=== PATIENT | male | born 1980 | race Caucasian/White ===

== ENCOUNTER 2022-01-17 14:05 | Emergency (ER) | payer OTHER, SELFPAY ==
--- NOTE | ~2022-01-17 | XR_ITS ---
EXAM: XR hand RT min 3V DATE: 01/17/2022 15:06 HISTORY: little finger flexion distal . COMPARISON: 09/13/2012Z. FINDINGS: Normal mineralization. No fracture or dislocation. The right fifth DIP joint is held in fl exion, which is a new finding. No lytic or blastic lesion. Joint spaces are maintained. No erosion or periosteal change. Soft tissues within normal limits. IMPRESSION: Flexed right fifth PIP joint, may reflect extensor tendon injury in the appropriate clini gabriel context. No acute osseous finding in the right hand. Reviewed, dictated and finalized at location K. IMPRESSION: Flexed right fifth PIP joint, may reflect extensor tendon injury in the appropriate clinical context. No acute osseous finding in the right hand.
[2022-01-17 14:26] VITALS: BP 135/91; PULSE 93; RESP 20; TEMP 36.8; O2SAT 97
[2022-01-17] MEDS: ACETAMINOPHEN 325 MG TABLET 650 MG PO (15:04)
--- NOTE | 2022-01-17 15:52 | ED.UPPEXIN ---
HPI - Extremity Injury (Upper) General Chief Complaint: Extremity Injury, Upper Stated Complaint: pinky finger injury right hand Time Seen by Provider: 01/17/22 14:09 Source: patient and RN notes reviewed Mode of arrival: ambulatory Limitations: no limitations History of Present Illness complaint: injury to: right Onset (ago): hour(s) (4) Other Extremity Injury: Right: fingers Other injuries: none Place: work Severity: mild Relieving factors: none Exacerbating factors: movement of extremity Associated symptoms: denies other symptoms Related Data Home Medications Medication Instructions Recorded Confirmed hydrocodone 7.5 mg-ibuprofen 200 1 tablet PO Q6H PRN Pain 01/17/22 01/17/22 mg tablet Allergies Allergy/AdvReac Type Severity Reaction Status Date / Time No Known Allergies Allergy Verified 01/17/22 15:00 Review of Systems Review of Systems: All systems reviewed & are unremarkable except as noted in HPI and below Constitutional: Constitutional: Reports no additional constitutional complaints Eyes: Eyes: Reports no additional eye complaints ENT: Reports system reviewed and no additional complaints, except as documented Cardiovascular: Cardiovascular: Reports no additional cardiovascular complaints Respiratory: Respiratory: Reports no additional respiratory complaints Gastrointestinal: Gastrointestinal: Reports no additional gastrointestinal complaints Musculoskeletal: Musculoskeletal: Reports arthralgias Integumentary/Breasts: Skin/Breast: Reports system reviewed and no additional complaints, except as docu Neurologic: Reports system reviewed and no additional complaints, except as documented Psychiatric: Psychiatric: Reports no additional psychiatric complaints Endocrine: Endocrine: Reports no additional endocrine complaints Hematologic/Lymphatic: Hematologic/Lymphatic: Reports no additional hematologic/lymphatic complaints Allergic/Immunologic: Allergic/Immunologic: Reports no additional allergic/immunologic complaints PMFSH Past Medical History Medical History Flexor tendon bowstring Exam Const: General: healthy appearing and no acute distress Nutritional Appearance: well nourished Orientation/consciousness: patient oriented x3 Limitations: no limitations HENMT: Head: normal to inspection Ears: external ears normal, TM's normal bilaterally and EAC's normal General nose exam: Normal external nose present and Normal nares present Face and sinus: normal facial exam and sinuses nontender Mouth: Yes Normal oral and palatal mucosa present and Yes moist mucous membranes Teeth and gingiva: dentition normal Throat: posterior oropharynx normal Eyes: Conjunctivae: conjunctivae normal Pupils: Equal, round and reactive pupils present EOM: EOMs intact bilaterally Neck: Neck: normal visual inspection, no lymphadenopathy and no meningeal signs Chest: Chest palpation & inspection: normal inspection of the chest Resp: Effort & Inspection: normal respiratory effort Auscultation: clear to auscultation bilaterally Cardio: Rate: regular rate Rhythm: regular rhythm GI: GI Palp: Yes Soft to palpation and No Tenderness to palpation present (GI) Auscultation: normal bowel sounds : General: Yes bladder normal to palpation and Yes no CVA tenderness Back/Spine/Pelvis: Back: no CVA tenderness Skin: General skin exam: normal color Rashes: no rashes Wounds: no wounds Neuro: General: patient oriented x3, moves all extremities, no meningeal signs, no focal motor deficits and CN's II-XI intact bilaterally Cranial nerves: Yes Equal, round and reactive pupils present and Yes Nystagmus not present Speech: normal speech Gait exam (Neuro): Normal gait present Extrem: General: normal to inspection and no pedal edema Other: right 5th finger held in flexion, no acute redness, swelling or deformity. Psych: Mental Status: mental status roxanne
[2022-01-17 16:19] VITALS: BP 135/80; PULSE 76; RESP 20; TEMP 36.8; O2SAT 98
--- NOTE | 2022-01-17 16:20 | PC.NURSE ---
[address] Francis an appt was made for pt to see Dr Williamson hand surgeon on SaturdayJanuary 23 at 1100
== END 2022-01-17 16:20 | disposition home or self-care (01) ==
PROVIDERS: Emergency Provider Emergency Medicine
DX: S66.106A Unspecified injury of flexor muscle, fascia and tendon of right little finger at wrist and hand level, initial encounter (principal)
CPT/HCPCS: 29130; 73130; 99283; A9270

== ENCOUNTER 2022-05-26 12:54 | Emergency (ER) | payer OTHER, SELFPAY ==
--- NOTE | ~2022-05-26 | XR_ITS ---
EXAMINATION: XR chest 2V DATE: 05/26/2022 13:55 INDICATION: Cough TECHNIQUE: PA and lateral views of the chest are obtained. COMPARISON: 06/21/2018 FINDINGS: The lungs are free of acute opacities. No pleural effusion or pneumothorax. The cardiomedia stinal silhouette is normal. There is mild thoracic spondylosis. IMPRESSION: 1. No acute cardiopulmonary abnormality. Reviewed, dictated and finalized at location A.
[2022-05-26 13:10] VITALS: BP 124/82; PULSE 79; RESP 18; TEMP 36.8; O2SAT 98
[2022-05-26 13:19] VITALS: BP 124/82; PULSE 79; RESP 18; TEMP 36.8; O2SAT 98
--- NOTE | 2022-05-26 13:43 | ED.URI ---
HPI - URI/Sore Throat General Chief Complaint: Upper Respiratory Infection Stated Complaint: cold congestion Time Seen by Provider: 05/26/22 13:43 Source: patient Mode of arrival: ambulatory Limitations: no limitations History of Present Illness HPI Narrative: 42-year-old male presents with complaint of cough, chest congestion, shortness of breath with exertion for 1 week. Reports that symptoms are getting progressively worse. Patient is a current everyday smoker. History of bronchitis. Is using albuterol inhaler. States the inhaler is almost empty. Patient is concerned he may have pneumonia. Not taking any [id number] medications to treat symptoms. All systems reviewed and negative except as above. Related Data Home Medications Medication Instructions Recorded Confirmed hydrocodone 7.5 mg-ibuprofen 200 1 tablet PO Q6H PRN Pain 01/17/22 05/26/22 mg tablet tamsulosin 0.4 mg capsule 0.4 mg PO DAILY 05/26/22 05/26/22 Allergies Allergy/AdvReac Type Severity Reaction Status Date / Time No Known Allergies Allergy Verified 05/26/22 13:18 Review of Systems Review of Systems: CONSTITUTIONAL: Denies fever, chills, or sweats. reports fatigue. EYES: Denies visual changes, redness, or discharge. ENT: Denies rhinorrhea, congestion, sore throat, or otalgia. CARDIOVASCULAR: Denies chest pain, palpitations, or edema. RESPIRATORY: Reports cough in chest congestion. Denies dyspnea. GASTROINTESTINAL: Denies abdominal pain, nausea, vomiting, or diarrhea. GENITOURINARY: Denies dysuria or hematuria. SKIN: Denies rash or itching. MUSCULOSKELETAL: Denies back pain, joint pain, or myalgia. NEUROLOGIC: Denies headache, numbness, or weakness. PSYCHIATRIC: Denies anxiety or depression. All other systems reviewed are negative, except as documented in HPI. [facility] Past Medical History Medical History Flexor tendon bowstring Exam Narrative: GENERAL: This is a well-nourished, well-developed patient, in no apparent distress. HEAD: normocephalic, atraumatic. EYES: PERRL. Sclera clear/white. Vision is grossly intact. EARS: External ears normal, auditory canals clear and without drainage, TMs normal without perforation. Hearing grossly intact. NOSE: External nose normal with no obvious nasal discharge, nares without redness, no rhinorrhea. THROAT: Mucous membranes moist, posterior pharynx clear. NECK: Neck supple, non-tender without lymphadenopathy, masses or thyromegaly. CARDIOVASCULAR: Regular rate and rhythm without murmurs, gallops, or rubs. RESPIRATORY: Coarse lung sounds throughout all lung henao. SKIN: warm, Dry, intact with no suspicious lesions or rash, good texture and turgor. NEURO: awake, alert, and oriented to person, place and time. There were no obvious focal neurologic abnormalities. EXTREMITIES: No joint tenderness, effusion, or edema noted. Course Course Level of Care: Express Care Visit Vital Signs Vital signs: Vital Signs Temperature 36.8 C 05/26/22 13:10 Pulse Rate 79 05/26/22 13:10 Respiratory Rate 18 05/26/22 13:10 Blood Pressure 124/82 05/26/22 13:10 Pulse Oximetry 98 05/26/22 13:10 Oxygen Delivery Room Air 05/26/22 13:10 Temperature 36.8 C 05/26/22 13:19 Pulse Rate 79 05/26/22 13:19 Respiratory Rate 18 05/26/22 13:19 Blood Pressure 124/82 05/26/22 13:19 Pulse Oximetry 98 05/26/22 13:19 Oxygen Delivery Room Air 05/26/22 13:19 reviewed MDM - URI/Sore Throat MDM Narrative Medical decision making narrative: coarse lung sounds. recommended breathing treatment the patient did not feel was necessary. She has requested a refill on albuterol inhaler. Discussed chest x-ray results. Negative for pneumonia. Patient is requesting an antibiotic. Will prescribe antibiotic due to duration of symptoms. Patient is aware of diagnosis, understands and agrees to treatment plan. Anticipatory
== END 2022-05-26 14:23 | disposition home or self-care (01) ==
PROVIDERS: Emergency Provider Nurse Practitioner Family; PCP Internal Medicine
DX: J06.9 Acute upper respiratory infection, unspecified (principal); F17.200 Nicotine dependence, unspecified, uncomplicated
CPT/HCPCS: 71046; 99213; G0463

== ENCOUNTER 2022-05-30 14:50 | Emergency (ER) | payer OTHER, SELFPAY ==
--- NOTE | ~2022-05-30 | XR_ITS ---
EXAMINATION: XR chest 1V portable 05/30/2022 15:28 INDICATION: Dyspnea. Shortness of breath. PROCEDURE: AP portable chest COMPARISON: 05/26/2022 FINDINGS: There are calcified granulomas in the right lower lung there is subtle right basilar infilt rate which may represent atelectasis or developing pneumonia. The cardiomediastinal silhouette is wit hin normal limits. There are no pleural effusions. There is no pneumothorax suspected. IMPRESSION: 1: Subtle right basilar infiltrate may represent atelectasis or developing pneumonia. Reviewed, dictated and finalized at location B. IMPRESSION: 1: Subtle right basilar infiltrate may represent atelectasis or developing pne umonia.
[2022-05-30 14:55] VITALS: BP 144/75; PULSE 87; RESP 18; TEMP 36.7; O2SAT 98
[2022-05-30] MEDS: methylPREDNISolone SOD SUCC 125 MG VIAL IV PUSH (15:19)
--- NOTE | 2022-05-30 15:19 | ED.GENADULT ---
HPI - General Adult General Chief complaint: Upper Respiratory Infection Stated complaint: trouble breathing, wheezing. cold symptoms Time Seen by Provider: 05/30/22 15:02 History of Present Illness HPI narrative: Marty is a 42M with a PMH of tobacco abuse and asthma that presented to the ER with over a week of wheezing, coughing and SOB. He was treated at an urgent care on 05/26 with prednisone and and a Z pack. Despite this he is having continued symptoms. There is no CP, fevers, chills, vomiting or lightheadedness. Related Data Home Medications Medication Instructions Recorded Confirmed hydrocodone 7.5 mg-ibuprofen 200 1 tablet PO Q6H PRN Pain 01/17/22 05/30/22 mg tablet tamsulosin 0.4 mg capsule 0.4 mg PO DAILY 05/26/22 05/30/22 Allergies Allergy/AdvReac Type Severity Reaction Status Date / Time No Known Allergies Allergy Verified 05/30/22 14:59 Review of Systems Review of Systems: All systems reviewed & are unremarkable except as noted in HPI and below [facility] Past Medical History Medical History Flexor tendon bowstring Exam Const: General: healthy appearing and no acute distress Nutritional Appearance: well nourished Orientation/consciousness: patient oriented x3 HENMT: Head: normal to inspection Ears: external ears normal Face/Nose/Sinus: Normal external nose present Eyes: Conjunctivae: conjunctivae normal Pupils: Equal, round and reactive pupils present Neck: Neck: normal visual inspection Chest: Chest palpation & inspection: normal inspection of the chest Resp: Effort & Inspection: labored Other: Diffuse wheezing with prolonged expiratory phase and cough was present on exam Cardio: Rate: regular rate Rhythm: regular rhythm Skin: General skin exam: normal color Neuro: General: patient oriented x3 and moves all extremities Extrem: General: normal to inspection Psych: Mental Status: mental status grossly normal Course Course Emergency Course: After the breathing treatment and steroids he was breathing much easier. Given levaquin for possible pneumonia Vital Signs Vital signs: Vital Signs Temperature 98.1 F 05/30/22 14:55 Pulse Rate 87 05/30/22 14:55 Respiratory Rate 18 05/30/22 14:55 Blood Pressure 144/75 H 05/30/22 14:55 Pulse Oximetry 98 05/30/22 14:55 Oxygen Delivery Room Air 05/30/22 14:55 Temperature 98.1 F 05/30/22 14:55 Pulse Rate 80 05/30/22 15:59 Respiratory Rate 18 05/30/22 15:59 Blood Pressure 120/64 05/30/22 15:59 Pulse Oximetry 96 05/30/22 15:59 Oxygen Delivery Room Air 05/30/22 15:59 Oxygen Flow Rate 6 05/30/22 15:41 Medical Decision Making Vital Signs Vital Signs: Vital Signs Temperature 98.1 F 05/30/22 14:55 Pulse Rate 87 05/30/22 14:55 Respiratory Rate 18 05/30/22 14:55 Blood Pressure 144/75 H 05/30/22 14:55 Pulse Oximetry 98 05/30/22 14:55 Oxygen Delivery Room Air 05/30/22 14:55 Temperature 98.1 F 05/30/22 14:55 Pulse Rate 80 05/30/22 15:59 Respiratory Rate 18 05/30/22 15:59 Blood Pressure 120/64 05/30/22 15:59 Pulse Oximetry 96 05/30/22 15:59 Oxygen Delivery Room Air 05/30/22 15:59 Oxygen Flow Rate 6 05/30/22 15:41 Lab Data Result diagrams: 05/30/22 15:21 05/30/22 15:21 Labs: Lab Results 05/30/22 05/30/22 Range/Units 15:21 15:21 WBC 9.5 (4.8-10.8) K/mm3 RBC 4.59 L (4.70-6.10) M/mm3 Hgb 14.1 (14.0-18.0) g/dL Hct 42.2 (40.0-54.0) % MCV 91.9 (78.0-102.0) fL MCH 30.7 (27.0-31.0) pg MCHC 33.4 (32.0-36.0) g/dL RDW 12.8 (11.6-14.4) % Plt Count 253 (150-420) K/mm3 MPV 10.2 (8.7-11.0) fl Immature Gran % (Auto) 0.3 H (0.0-0.0) % Neut % (Auto) 66.9 (50.0-70.0) % Lymph % (Auto) 26.3 (18.0-42.0) % [place] % (Auto) 5.7 (2.0-11.0) % Eos % (Auto) 0.5 L (1.0-6.0) % Baso % (Auto) 0.3 (0.0-1.0) % L
[2022-05-30 15:24] VITALS: PULSE 73; RESP 18; O2SAT 97
[2022-05-30] MEDS: IPRATROPIUM 0.5 MG/ALBUTEROL SULFATE 2.5 MG AMPUL.NEB 3 ML INHALATION (15:24)
[2022-05-30 15:25] LABS: Basophils Absolute Auto 0.03 K/mm3 (0.00-0.10); Basophils Percent Auto 0.3 % (0.0-1.0); Eosinophils Absolute Auto 0.05 K/mm3 (0.02-0.50); Eosinophils Percent Auto 0.5 % (1.0-6.0); Hematocrit 42.2 % (40.0-54.0); Hemoglobin 14.1 g/dL (14.0-18.0); Immature Granulocyte Absolute 0.03 K/mm3 (0.00-0.00); Immature Granulocyte Percent A 0.3 % (0.0-0.0); Lymphocytes Absolute Auto 2.51 K/mm3 (1.10-4.50); Lymphocytes Percent Auto 26.3 % (18.0-42.0); Mean Corpuscular HGB Conc 33.4 g/dL (32.0-36.0); Mean Corpuscular Hemoglobin 30.7 pg (27.0-31.0); Mean Corpuscular Volume 91.9 fL (78.0-102.0); Mean Platelet Volume 10.2 fl (8.7-11.0); Monocytes Absolute Auto 0.54 K/mm3 (0.10-0.90); Monocytes Percent Auto 5.7 % (2.0-11.0); Neutrophils Absolute Auto 6.4 K/mm3 (1.7-7.2); Neutrophils Percent Auto 66.9 % (50.0-70.0); Platelet Count Result 253 K/mm3 (150-420); Red Blood Count 4.59 M/mm3 (4.70-6.10); Red Cell Distribution Width 12.8 % (11.6-14.4); White Blood Count 9.5 K/mm3 (4.8-10.8)
[2022-05-30 15:40] LABS: Alanine Aminotransferase 24 U/L (16-63); Albumin Level 3.3 g/dL (3.4-5.0); Alkaline Phosphatase 86 U/L (46-116); Anion Gap 5 mmol/L (8-16); Aspartate Amino Transferase 11 U/L (15-37); Bilirubin,Total 0.3 mg/dL (0.00-1.00); Blood Urea Nitrogen 14 mg/dL (7-18); Calcium 8.6 mg/dL (8.5-10.1); Carbon Dioxide 30 mmol/L (21-32); Chloride 108 mmol/L (98-108); Estimated CRCL calculation 82 ml/min; Estimated Glomerular Filt Rate > 60; Glucose 118 mg/dL (70-99); Osmolality Calculated 297 mOsm/kg (285-295); Sodium 143 mmol/L (136-145); Total Protein 5.8 g/dL (6.4-8.2)
[2022-05-30 15:41] VITALS: PULSE 79; RESP 18; O2SAT 99
[2022-05-30] MEDS: POTASSIUM CHLORIDE 20 MEQ TABLET 40 MEQ PO (15:55)
[2022-05-30] MEDS: levoFLOXacin TAB 500 MG, levoFLOXacin TAB 250 MG 750 MG PO (15:56)
[2022-05-30 15:59] VITALS: BP 120/64; PULSE 80; RESP 18; O2SAT 96
--- NOTE | 2022-05-30 15:59 | PC.NURSE ---
PT REPORTS HE IS FEELING A LITTLE BETTER POST NEB TX. PT IS SITTING UP TALKING WITH SIG OTHER AT THIS TIME. NAD NOTED. SX HAVE IMPROVED. WILL AWAIT ERP DECISION.
[2022-05-30 16:25] VITALS: BP 132/78; PULSE 78; RESP 18; O2SAT 97
== END 2022-05-30 16:20 | disposition home or self-care (01) ==
PROVIDERS: Emergency Provider Family Medicine
DX: J18.9 Pneumonia, unspecified organism (principal); J45.901 Unspecified asthma with (acute) exacerbation
CPT/HCPCS: 36415; 71045; 80053; 85025; 94640; 96374; 99284; A9270; J2930

== ENCOUNTER 2022-10-13 19:25 | Emergency (ER) | payer OTHER, SELFPAY ==
--- NOTE | ~2022-10-13 | CT_ITS ---
Non-contrast CT scan of the Abdomen and Pelvis Clinical indication: Right flank pain Technique: 2.5 mm axial scans were obtained through the abdomen and pelvis without intravenous or or al contrast. Dose reduction technique was used on this scan by utilizing automated exposure control a nd iterative reconstruction technique. The dose-length product (DLP) was 186.29 mGy-cm. Findings: Images through the lung bases reveal calcified right lower lobe granuloma. Small bilateral nonobstructing renal stones are present. No ureteral stone or hydronephrosis seen in either side. The liver, spleen, pancreas, gallbladder, and right adrenal gland appear normal. Low-density left adr enal nodules consistent with benign adenoma. There is no aortic aneurysm. There is no evidence of bowel obstruction. Small fat-containing umbilical hernia noted. Images through the pelvis were performed. There is no evidence of ascites or lymphadenopathy. Urinary bladder unremarkable. Prostate gland and seminal vesicles are unremarkable. Impression: Bilateral nonobstructing nephrolithiasis. No ureteral stone or hydronephrosis. Left adrenal adenoma. Small fat-containing umbilical hernia. Reviewed, dictated and finalized at [facility]. [employer] Impression: Bilateral nonobstructing nephrolithiasis. No ureteral stone or hydronephrosis. Left adrenal adenoma. Small fat-containing umbilical hernia.
[2022-10-13 19:25] VITALS: BP 153/82; PULSE 90; RESP 16; TEMP 37.1; O2SAT 97
--- NOTE | 2022-10-13 19:30 | ECG_ITS ---
Measurements Intervals [place] Rate: 80 P: 73 DE: 152 QRS: 75 QRSD: 92 T: 75 QT: 370 QTc: 429 Interpretive Statements SINUS RHYTHM NORMAL ECG NO PREVIOUS ECG AVAILABLE FOR COMPARISON Electronically Signed On 10-14-2022 8:00:27 CDT by Leonid Zavala D.O.
[2022-10-13] MEDS: KETOROLAC 30 MG/ML VIAL (*BKC) IV PUSH (20:00)
--- NOTE | 2022-10-13 20:02 | ED.BACK ---
HPI - Back Pain/Injury General Chief Complaint: Urogenital-Male Stated Complaint: Lower Back Pain Time Seen by Provider: 10/13/22 19:29 Source: patient Mode of arrival: ambulatory Limitations: no limitations History of Present Illness HPI Narrative: This is a 42-year-old male that presents with some flank pain and back pain has a history of back pain neck pain and a history of kidney stones in the past rates his pain about a 7/10 with no nausea currently no abdominal pain no dysuria no hematuria no chest pain or shortness of breath. MD elicited complaint: back pain Pertinent past history: prior back pain and other Onset (ago): day(s) Timing: intermittent Severity: moderate Pain scale (0-10): 7 Quality: dull Related Data Home Medications Medication Instructions Recorded Confirmed hydrocodone 7.5 mg-ibuprofen 200 1 tablet PO Q6H PRN Pain 01/17/22 10/13/22 mg tablet tamsulosin 0.4 mg capsule 0.4 mg PO DAILY 05/26/22 10/13/22 Allergies Allergy/AdvReac Type Severity Reaction Status Date / Time No Known Allergies Allergy Verified 10/13/22 19:34 Review of Systems Review of Systems: All systems reviewed & are unremarkable except as noted in HPI and below PMFSH Past Medical History Medical History Flexor tendon bowstring Exam Const: General: healthy appearing Nutritional Appearance: well nourished Orientation/consciousness: patient oriented x3 Limitations: no limitations HENMT: Head: normal to inspection Face/Nose/Sinus: Normal external nose present Face and sinus: normal facial exam Mouth: Yes Normal oral and palatal mucosa present Eyes: Conjunctivae: conjunctivae normal Pupils: Equal, round and reactive pupils present EOM: EOMs intact bilaterally Direct Ophthalmoscopy: no photophobia Neck: Neck: normal visual inspection Chest: Chest palpation & inspection: normal inspection of the chest Resp: Effort & Inspection: normal respiratory effort Auscultation: diminished lung sounds Cardio: Rate: regular rate Rhythm: regular rhythm GI: GI Palp: Yes Soft to palpation and Yes Tenderness to palpation present (GI) Auscultation: normal bowel sounds : General: Yes bladder normal to palpation Urinary Catheter: Urinary Catheter: patent and draining Back/Spine/Pelvis: Back: CVA tenderness Skin: General skin exam: normal color Rashes: no rashes Wounds: no wounds Neuro: General: patient oriented x3 and moves all extremities Cranial nerves: Yes Nystagmus not present Speech: normal speech Gait exam (Neuro): Normal gait present Extrem: General: normal to inspection Psych: Mental Status: mental status grossly normal Affect: normal affect Attitude: cooperative Course Course Emergency Course: Patient receiving IV fluids received a dose of IV Toradol 30mg, CT scan reviewed shows kidney stones without obstruction, with no urethral stones. Labs performed and reviewed with patient. Vital Signs Vital signs: Vital Signs Temperature 37.1 C 10/13/22 19:25 Pulse Rate 90 10/13/22 19:25 Respiratory Rate 16 10/13/22 19:25 Blood Pressure 153/82 H 10/13/22 19:25 Pulse Oximetry 97 10/13/22 19:25 Oxygen Delivery Room Air 10/13/22 19:25 Temperature 37.1 C 10/13/22 19:25 Pulse Rate 90 10/13/22 19:25 Respiratory Rate 16 10/13/22 19:25 Blood Pressure 153/82 H 10/13/22 19:25 Pulse Oximetry 97 10/13/22 19:25 Oxygen Delivery Room Air 10/13/22 19:25 MDM - Back Pain/Injury Lab Data 10/13/22 20:00 10/13/22 20:01 Labs: Lab Results 10/13/22 10/13/22 10/13/22 Range/Units 20:00 20:00 20:00 WBC Pending RBC Pending Hgb Pending Hct Pending MCV Pending MCH Pending MCHC Pending RDW Pending Plt Count Pending MPV Pending Immature Gran % (Auto) Pending Neut % (Auto) Pending Lymph % (Auto) Pending Bond % (Auto) P
[2022-10-13 20:04] LABS: Basophils Absolute Auto 0.06 K/mm3 (0.00-0.10); Basophils Percent Auto 0.8 % (0.0-1.0); Eosinophils Absolute Auto 0.21 K/mm3 (0.02-0.50); Eosinophils Percent Auto 2.9 % (1.0-6.0); Hematocrit 43.6 % (40.0-54.0); Hemoglobin 14.3 g/dL (14.0-18.0); Immature Granulocyte Absolute 0.02 K/mm3 (0.00-0.00); Immature Granulocyte Percent A 0.3 % (0.0-0.0); Lymphocytes Absolute Auto 2.09 K/mm3 (1.10-4.50); Lymphocytes Percent Auto 28.8 % (18.0-42.0); Mean Corpuscular HGB Conc 32.8 g/dL (32.0-36.0); Mean Corpuscular Hemoglobin 30.1 pg (27.0-31.0); Mean Corpuscular Volume 91.8 fL (78.0-102.0); Mean Platelet Volume 10.4 fl (8.7-11.0); Monocytes Percent Auto 6.9 % (2.0-11.0); Neutrophils Absolute Auto 4.4 K/mm3 (1.7-7.2); Neutrophils Percent Auto 60.3 % (50.0-70.0); Platelet Count Result 249 K/mm3 (150-420); Red Blood Count 4.75 M/mm3 (4.70-6.10); Red Cell Distribution Width 13.2 % (11.6-14.4); White Blood Count 7.3 K/mm3 (4.8-10.8)
[2022-10-13 20:07] LABS: Appearance Urine Clear (Clear); Bilirubin Urine Negative (Negative); Blood Urine 1+ (Negative); Color Urine Light Yellow (Yellow); Glucose Urine UA Negative (Negative); Ketones Urine Negative (Negative); Leukocyte Esterase Ur Negative LEU/UL (Negative); Nitrate Urine Negative (Negative); Protein Urine Negative (Negative); Specific Grav Ur 1.025 (1.010-1.020); Urobilinogen Urine 0.2 mg/dL (0.2-1.0); pH Urine 6.5 (5.0-8.0)
[2022-10-13 20:13] LABS: Add Urine Microscopic? YES
[2022-10-13 20:14] LABS: RBC Urine 0-2 /hpf (0-2)
[2022-10-13 20:19] LABS: Partial Thromboplastin Time 27.9 SEC (23.90-30.70); Prothrombin Time 11.4 Seconds (9.50-12.10)
[2022-10-13 20:24] LABS: Lactic Acid Reflex 0.8 mmol/L (0.4-2.0)
[2022-10-13 20:33] LABS: Alanine Aminotransferase 24 U/L (16-63); Albumin Level 3.9 g/dL (3.4-5.0); Alkaline Phosphatase 94 U/L (46-116); Anion Gap 7 mmol/L (8-16); Aspartate Amino Transferase 15 U/L (15-37); Bilirubin,Total 0.2 mg/dL (0.00-1.00); Blood Urea Nitrogen 19 mg/dL (7-18); Calcium 6.3 mg/dL (8.5-10.1); Carbon Dioxide 31 mmol/L (21-32); Chloride 105 mmol/L (98-108); Estimated CRCL calculation 63 ml/min; Estimated Glomerular Filt Rate 57; Glucose 95 mg/dL (70-99); Lipase 51 U/L (16-77); Osmolality Calculated 298 mOsm/kg (285-295); Potassium 4.1 mmol/L (3.5-5.1); Sodium 143 mmol/L (136-145); Total Protein 6.6 g/dL (6.4-8.2)
[2022-10-13 20:56] VITALS: BP 156/75; PULSE 70; RESP 16; TEMP 37; O2SAT 100
== END 2022-10-13 21:02 | disposition home or self-care (01) ==
PROVIDERS: Emergency Provider Emergency Medicine; PCP Internal Medicine
DX: M54.50 Low back pain, unspecified (principal); Z79.891 Long term (current) use of opiate analgesic
CPT/HCPCS: 36415; 74176; 80053; 81001; 83605; 83690; 85025; 85610; 85730; 93005; 96374; 99284; J1885

== ENCOUNTER 2022-10-20 15:05 | Emergency (ER) | payer OTHER, SELFPAY ==
[2022-10-20 15:12] VITALS: BP 161/86; PULSE 99; RESP 18; TEMP 36.7; O2SAT 97
[2022-10-20 15:19] VITALS: BP 161/86; PULSE 88; RESP 16; TEMP 36.7; O2SAT 98
--- NOTE | 2022-10-20 15:45 | ED.DENTAL ---
HPI - Dental/Oral General Chief complaint: Dental/Oral Stated complaint: toothache upper left Time Seen by Provider: 10/20/22 15:10 Source: patient Mode of arrival: ambulatory Limitations: no limitations History of Present Illness HPI Narrative: this is a 42-year-old gentleman with a history of chronic tooth decay has been having some pain inflammation with tender submandibular gland on the left will call his dentist and he does have an appointment to see his dentist this coming Saturday but would require antibiotics if he has a abscessed tooth. There is no shortness of breath no fever chills no nausea vomiting. MD Complaint: tooth pain Teeth map: 1. dental decay with surrounding gum inflammation with a tender submandibular gland on the left tender upper jaw area with palpation Onset (ago): day(s) Duration: constant Severity: moderate Severity scale (1-10): 5 Relieving factors: prescription analgesics Exacerbating factors: chewing and cold Context: history of dental caries Associated symptoms: gum swelling Related Data Home Medications Medication Instructions Recorded Confirmed hydrocodone 7.5 mg-ibuprofen 200 1 tablet PO Q6H PRN Pain 01/17/22 10/20/22 mg tablet tamsulosin 0.4 mg capsule 0.4 mg PO DAILY 05/26/22 10/20/22 Allergies Allergy/AdvReac Type Severity Reaction Status Date / Time No Known Allergies Allergy Verified 10/20/22 15:26 Review of Systems Review of Systems: All systems reviewed & are unremarkable except as noted in HPI and below PMFSH Past Medical History Medical History Flexor tendon bowstring Exam Const: General: healthy appearing Nutritional Appearance: well nourished Orientation/consciousness: patient oriented x3 Limitations: no limitations HENMT: Head: normal to inspection Face/Nose/Sinus: Normal external nose present Face and sinus: normal facial exam Mouth: Yes Normal oral and palatal mucosa present Other: Left upper molar premolar tooth decay with surrounding gum inflammation with a tender left submandibular gland. Eyes: Conjunctivae: conjunctivae normal EOM: EOMs intact bilaterally Neck: Neck: normal visual inspection Chest: Chest palpation & inspection: normal inspection of the chest Resp: Effort & Inspection: normal respiratory effort Auscultation: clear to auscultation bilaterally Cardio: Rate: regular rate Rhythm: regular rhythm GI: Auscultation: normal bowel sounds Skin: General skin exam: normal color Rashes: no rashes Wounds: no wounds Neuro: General: patient oriented x3 Cranial nerves: Yes Nystagmus not present Extrem: General: normal to inspection Psych: Mental Status: mental status grossly normal Affect: normal affect Course Course Emergency Course: Patient does have pain medication and does have an appointment to see his dentist, will send antibiotics to his local pharmacy. Vital Signs Vital signs: Vital Signs Temperature 36.7 C 10/20/22 15:12 Pulse Rate 99 10/20/22 15:12 Respiratory Rate 18 10/20/22 15:12 Blood Pressure 161/86 H 10/20/22 15:12 Pulse Oximetry 97 10/20/22 15:12 Oxygen Delivery Room Air 10/20/22 15:12 Temperature 36.7 C 10/20/22 15:19 Pulse Rate 88 10/20/22 15:19 Respiratory Rate 16 10/20/22 15:19 Blood Pressure 161/86 H 10/20/22 15:19 Pulse Oximetry 98 10/20/22 15:19 Oxygen Delivery Room Air 10/20/22 15:19 Critical Care Time Critical Care Time Critical Care Time: No Discharge Plan Discharge Clinical Impression: Toothache, Dental caries, Dental abscess Patient Disposition: Home, Self-Care Condition: Stable Instructions: Antibiotic Form, Dental Abscess (ED) Additional Instructions: Take medicine as prescribed, can take Tylenol or Motrin which will help with inflammation along with antibiotics and follow-up with dentist as scheduled. Prescriptions: New amoxicillin 500 mg tablet 50
[2022-10-20 15:52] VITALS: BP 161/86; PULSE 88; RESP 17; TEMP 36.7; O2SAT 98
== END 2022-10-20 15:55 | disposition home or self-care (01) ==
PROVIDERS: Emergency Provider Emergency Medicine; PCP Internal Medicine
DX: K02.9 Dental caries, unspecified (principal); K04.7 Periapical abscess without sinus
CPT/HCPCS: 99283

== ENCOUNTER 2022-12-04 09:00 | Emergency (ER) | payer OTHER, SELFPAY ==
--- NOTE | ~2022-12-04 | XR_ITS ---
EXAMINATION: XR chest 2V DATE: 12/04/2022 10:26 INDICATION: Cough and right-sided chest pain/burning sensation TECHNIQUE: PA and lateral views of the chest were obtained. COMPARISON: Chest radiograph dated 05/30/2022 and 05/26/2022 FINDINGS: Again seen is a small calcified nodule at the right lower lung zone consistent with old granulomatous disease. Mild biapical pleural-parenchymal scarring. No other airspace opacities, pulmonary edema, p leural effusion or pneumothorax. The cardiomediastinal silhouette is normal. Mild thoracic spondylosi s with chronic mild anterior wedging of an upper thoracic vertebral body, likely T5. IMPRESSION: 1. No acute cardiopulmonary disease. Reviewed, dictated and finalized at location L.
[2022-12-04 09:00] VITALS: TEMP 37.2
[2022-12-04 09:03] VITALS: BP 123/75; PULSE 87; RESP 18; TEMP 37.2; O2SAT 98
--- NOTE | 2022-12-04 09:31 | ED.URI ---
HPI - URI/Sore Throat General Chief Complaint: Upper Respiratory Infection Stated Complaint: SOB Time Seen by Provider: 12/04/22 09:31 Source: patient and RN notes reviewed Mode of arrival: ambulatory Limitations: no limitations History of Present Illness MD elicited complaint: cough, sore throat and rhinorrhea Onset (ago): day(s) (1) Consistency: constant Severity: moderate Description of mucous: clear Able to tolerate fluids by mouth: Yes Exacerbating factors: nothing Relieving factors: nothing Context: other(s) with similar symptoms Associated symptoms: denies other symptoms Treatments prior to arrival: none Related Data Home Medications Medication Instructions Recorded Confirmed hydrocodone 7.5 mg-ibuprofen 200 1 tablet PO Q6H PRN Pain 01/17/22 12/04/22 mg tablet tizanidine 2 mg tablet 2 mg PO TID PRN Muscle Spasm 12/04/22 12/04/22 Allergies Allergy/AdvReac Type Severity Reaction Status Date / Time No Known Allergies Allergy Verified 12/04/22 09:02 Review of Systems Review of Systems: All systems reviewed & are unremarkable except as noted in HPI and below Constitutional: Constitutional: Denies chills and Denies fever(s) Cardiovascular: Cardiovascular: Reports chest pain (burning on the right) Gastrointestinal: Gastrointestinal: Denies diarrhea, Denies nausea and Denies vomiting Musculoskeletal: Musculoskeletal: Denies myalgias Neurologic: Denies headache(s) [facility] Past Medical History Medical History (Updated 12/04/22 @ 10:46 by Nguyễn Caruso MD) Flexor tendon bowstring Surgical History Surgical History (Updated 12/04/22 @ 09:43 by Nguyễn Caruso MD) Carpal tunnel syndrome History of appendectomy Social History Social History (Updated 12/04/22 @ 09:44 by Nguyễn Caruso MD) Smoking packs per day: 1 Smoking cigarettes per day: 20.0 Smoking status: Current every day smoker Tobacco type: cigarettes Exam Const: General: no acute distress, alert and ill appearing acutely Nutritional Appearance: well nourished Orientation/consciousness: patient oriented x3 Limitations: no limitations HENMT: Head: normal to inspection Ears: external ears normal Face/Nose/Sinus: Normal external nose present Face and sinus: normal facial exam Mouth: Yes moist mucous membranes Eyes: Conjunctivae: conjunctivae normal Pupils: Equal, round and reactive pupils present EOM: EOMs intact bilaterally Neck: Neck: normal visual inspection Resp: Effort & Inspection: normal respiratory effort Auscultation: rhonchi right lower and wheezes right lower and right upper Cardio: Rate: regular rate Rhythm: regular rhythm GI: GI Palp: Yes Soft to palpation and No Tenderness to palpation present (GI) Auscultation: normal bowel sounds Back/Spine/Pelvis: Cervical Spine: cervical ROM normal Thoracic/Lumbar Spine: thoraco-lumbar ROM normal Skin: General skin exam: normal color Rashes: no rashes Neuro: General: patient oriented x3, moves all extremities, no focal motor deficits and CN's II-XI intact bilaterally Speech: normal speech Gait exam (Neuro): Normal gait present Course Vital Signs Vital signs: Vital Signs Temperature 37.2 C 12/04/22 09:00 Oxygen Delivery Room Air 12/04/22 09:00 Temperature 37.2 C 12/04/22 09:03 Pulse Rate 87 12/04/22 09:03 Respiratory Rate 18 12/04/22 09:03 Blood Pressure 123/75 12/04/22 09:03 Pulse Oximetry 98 12/04/22 09:03 Oxygen Delivery Room Air 12/04/22 09:00 MDM - URI/Sore Throat Differential Diagnosis Differential diagnosis: Likely upper respiratory infection, viral infection, bronchitis, influenza, pharyngitis and other ( COVID, pneumonia) Lab Data Labs: Lab Results 12/04/22 12/04/22 Range/Units 09:22 09:23 Influenza A (RT-PCR) Pending Influenza B (RT-PCR) Pending SARS-CoV-2 RNA (RT-PCR) Pending Group A Strep (PCR) Pending Discharge Plan Discharge Clinical Impression: Bronch
[2022-12-04 09:42] LABS: Strep Group A RT-PCR NOT DETECTED (Negative)
[2022-12-04 09:52] LABS: Influenza A QL RT-PCR Negative (Negative); Influenza B QL RT-PCR Negative (Negative); SARS-CoV-2 RNA PCR Negative (Negative)
[2022-12-04] MEDS: IPRATROPIUM 0.5 MG/ALBUTEROL SULFATE 2.5 MG AMPUL.NEB 3 ML INHALATION (10:07)
[2022-12-04 10:08] VITALS: PULSE 80; RESP 16; O2SAT 94
[2022-12-04 10:13] VITALS: PULSE 80; RESP 16; O2SAT 98
--- NOTE | 2022-12-04 10:14 | PC.NURSE ---
PT IS AWAITING CXR AT THIS TIME. AT BEDSIDE. PT HAS COMPLETED NEB TX. NAD NOTED. WILL CONTINUE TO MONITOR. WARM BLANKET PROVIDED. WILL CONTINUE TO MONITOR.
[2022-12-04 10:51] VITALS: BP 144/79; PULSE 83; RESP 18; O2SAT 94
--- NOTE | 2022-12-04 10:51 | PC.NURSE ---
PT IS SLEEPING PRIOR TO DC .
== END 2022-12-04 10:55 | disposition home or self-care (01) ==
PROVIDERS: Emergency Provider Emergency Medicine; PCP Internal Medicine
DX: J00 Acute nasopharyngitis [common cold] (principal); F17.210 Nicotine dependence, cigarettes, uncomplicated; Z20.822 Contact with and (suspected) exposure to COVID-19
CPT/HCPCS: 71046; 87636; 87651; 94640; 99283

== ENCOUNTER 2023-01-05 15:59 | Emergency (ER) | payer OTHER, SELFPAY ==
[2023-01-05 16:09] VITALS: BP 123/80; PULSE 84; RESP 16; TEMP 36.9; O2SAT 98
--- NOTE | 2023-01-05 16:24 | ED.DENTAL ---
HPI - Dental/Oral General Chief complaint: Dental/Oral Stated complaint: Tooth pain Source: patient Mode of arrival: ambulatory History of Present Illness HPI Narrative: 42-year-old male presented for complaint of left upper dental pain for 2 days. I made appointment with his dentist for 2 weeks. States the tooth has been broken for quite some time. Endorses mild swelling to the inner gumline. Denies drainage. 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 Rinsed mouth with salt water. Denies nausea, vomiting diarrhea, fevers or chills. MD Complaint: tooth pain Related Data Home Medications Medication Instructions Recorded Confirmed hydrocodone 7.5 mg-ibuprofen 200 1 tablet PO Q6H PRN Pain 01/17/22 12/04/22 mg tablet Allergies Allergy/AdvReac Type Severity Reaction Status Date / Time No Known Allergies Allergy Verified 12/04/22 09:02 Review of Systems Review of Systems: CONSTITUTIONAL: Denies body aches, fever, chills ENT: Denies rhinorrhea, congestion, sore throat, or otalgia. Reports dental pain CARDIOVASCULAR: Denies chest pain, palpitations RESPIRATORY: Denies cough or dyspnea. SKIN: Denies rash, itching, or wounds. MUSCULOSKELETAL: Denies myalgia. NEUROLOGIC: Denies headache, numbness, tingling, or weakness. [facility] Past Medical History Medical History Flexor tendon bowstring Surgical History Surgical History Carpal tunnel syndrome History of appendectomy Social History Social History Smoking packs per day: 1 Smoking cigarettes per day: 20.0 Smoking status: Current every day smoker Tobacco type: cigarettes Comments At time of signature, I have reviewed and agree with nursing past medical, surgical, social and family history unless otherwise noted. Please see nursing chart for further information. There is no relevant family history pertinent to the presenting complaint Exam Narrative: GENERAL: Appears in pain; no acute distress. HEAD: Normocephalic, atraumatic. no apparent facial swelling or erythema EYES: EOMI. No redness or drainage. Conjunctivae normal. ENT: Dental pain location of #15, broken tooth; gum is tender. no drainage. Mucous membranes pink and moist. NECK: Normal AROM. No lymphadenopathy. CHEST: No respiratory distress. HEART: Regular rate and rhythm. No murmur appreciated. SKIN: Warm, dry, no rash. Normal skin turgor. NEURO: No focal deficits. Alert and oriented x3. Gait steady. HENMT: Teeth image: 1. Tooth #15 broken/decaying with mild medial gum swelling Course Course Emergency Course: Patient is aware of diagnosis, understands and agrees to treatment plan. Anticipatory guidance given. Patient agrees to follow-up as directed and is aware of reasons to seek care at the emergency department. Portions of this record may have been created with voice recognition software Level of Care: Express Care Visit Vital Signs Vital signs: Vital Signs Temperature 98.4 F 01/05/23 16:09 Pulse Rate 84 01/05/23 16:09 Respiratory Rate 16 01/05/23 16:09 Blood Pressure 123/80 01/05/23 16:09 Pulse Oximetry 98 01/05/23 16:09 Oxygen Delivery Room Air 01/05/23 16:09 Temperature 98.4 F 01/05/23 16:09 Pulse Rate 84 01/05/23 16:09 Respiratory Rate 16 01/05/23 16:09 Blood Pressure 123/80 01/05/23 16:09 Pulse Oximetry 98 01/05/23 16:09 Oxygen Delivery Room Air 01/05/23 16:09 MDM - Dental/Oral MDM Narrative Medical decision making narrative: Patients pain and complaint coupled with physical findings are consistent with dental abscess. There are no focal signs of space occupying lesions that are compromising to the airway. No uvular deviation or soft palate edema. Patient is non-toxic
== END 2023-01-05 16:32 | disposition home or self-care (01) ==
PROVIDERS: Emergency Provider Nurse Practitioner Family
DX: K04.7 Periapical abscess without sinus (principal); F17.210 Nicotine dependence, cigarettes, uncomplicated
CPT/HCPCS: 99213; G0463

== ENCOUNTER 2023-01-21 23:24 | Emergency (ER) | payer OTHER, SELFPAY ==
[2023-01-21 23:26] VITALS: BP 150/85; PULSE 76; RESP 18; TEMP 36.9; O2SAT 99
--- NOTE | 2023-01-22 00:32 | ED.SKABFB ---
HPI - Skin/Abscess/Foreign Bdy General Chief complaint: Skin/Abscess/Foreign Body Stated complaint: Rash/Groin area Source: patient Mode of arrival: ambulatory Limitations: no limitations History of Present Illness HPI narrative: 42-year-old white male presents with about a half in size round raised lesion to his left lower abdomen just above they L mid inguinal area. this has come up over the last 5 or 6 days, and he reports this has happened 3-4 times over the last 6 months. 1 time he was started on antibiotics and it resolved, the other time it went away on its own for he denies any fever or chills, abdominal pain, nausea vomiting, denies any penile discharge, dysuria urgency or frequency. There has never been a 2nd lesion, and he has not had any sores on his penis. Related Data Home Medications Medication Instructions Recorded Confirmed hydrocodone 7.5 mg-ibuprofen 200 1 tablet PO Q6H PRN Pain 01/17/22 01/21/23 mg tablet Allergies Allergy/AdvReac Type Severity Reaction Status Date / Time No Known Allergies Allergy Verified 12/04/22 09:02 Review of Systems Review of Systems: All systems reviewed & are unremarkable except as noted in HPI and below ( HPI) [facility] Past Medical History Medical History Flexor tendon bowstring Surgical History Surgical History Carpal tunnel syndrome History of appendectomy Social History Social History Smoking packs per day: 1 Smoking cigarettes per day: 20.0 Smoking status: Current every day smoker Tobacco type: cigarettes Exam Narrative: pleasant, well-appearing child, appropriately interactive, no acute distress Const: General: cooperative, healthy appearing, comfortable, no acute distress, well developed, alert, awake and Physically active Orientation/consciousness: patient oriented x3 HENMT: Head: normal to inspection, normocephalic and atraumatic Ears: hearing grossly normal bilaterally and external ears normal Face/Nose/Sinus: Normal external nose present, Normal nares present, Normal nasal mucous membranes and turbinates present and normal facial exam Face and sinus: normal facial exam Mouth: Yes Normal oral and palatal mucosa present, Yes lip normal, Yes tongue normal, Yes oropharynx normal and Yes moist mucous membranes Teeth and gingiva: dentition normal Throat: posterior oropharynx normal and tonsils normal ( erythematous) Eyes: General: appearance normal, both eyes and all related structures Alignment and Position: alignment normal and position normal Periorbital: periorbital findings normal Eyelids: eyelids normal Conjunctivae: conjunctivae normal Sclera: sclerae normal Cornea: corneas normal Pupils: Equal, round and reactive pupils present EOM: EOMs intact bilaterally Neck: Neck: normal visual inspection, full ROM and no lymphadenopathy Resp: Effort & Inspection: normal respiratory effort, able to speak in complete sentences, no respiratory distress and no use of accessory muscles GI: Inspection: normal to inspection GI Palp: No abdominal tenderness, No Tenderness to palpation present (GI), No Guarding due to palpation present (GI), No No hepatosplenomegaly present, No Palpable mass present and No Rebound tenderness present : Male General Exam: Yes normal external exam Penis: Yes normal penis Scrotum: scrotum normal Testes: Testes normal Other: There is a 1.5 cm circular raised area on the left inguinal lower abdominal area about 3 cm medial to the mid inguinal groove, there is no warmth, no significant erythema, no fluctuance, it is not indurated although it is raised. There is no abrasion, no excoriation, no opening, no drainage,. there is average amount of adenopathy along the inguinal groove, none of which are tender or enlarged Skin: General skin exam: norm
[2023-01-22 01:05] VITALS: BP 144/86; PULSE 63; RESP 16; TEMP 36.6; O2SAT 98
== END 2023-01-22 01:08 | disposition home or self-care (01) ==
PROVIDERS: Emergency Provider Emergency Medicine
DX: L98.9 Disorder of the skin and subcutaneous tissue, unspecified (principal); F17.210 Nicotine dependence, cigarettes, uncomplicated
CPT/HCPCS: 99281

== ENCOUNTER 2023-02-11 22:08 | Emergency (ER) | payer OTHER, SELFPAY ==
[2023-02-11 22:17] VITALS: BP 150/82; PULSE 72; RESP 18; TEMP 36.9; O2SAT 98
--- NOTE | 2023-02-11 22:19 | ED.GENADULT ---
HPI - General Adult General Chief complaint: Dental/Oral Stated complaint: top left molar pain after removal Time Seen by Provider: 02/11/23 22:19 History of Present Illness HPI narrative: Paul is a 42M with a PMH of chronic pain with chronic opioid use, poor dentition with multiple teeth extractions including one today. He took the packing out and since then he has had a little bleeding and severe pain. No dysphagia, N/V, CP or dyspnea reported. He is on amoxicillin from his Dentist. He gets 120 tabs of 7.5mg hydrocodone tabs per month which he has been taking. Related Data Home Medications Medication Instructions Recorded Confirmed hydrocodone 7.5 mg-ibuprofen 200 1 tablet PO Q6H PRN Pain 01/17/22 02/11/23 mg tablet amoxicillin 500 mg tablet 500 mg PO TID 02/11/23 02/11/23 Allergies Allergy/AdvReac Type Severity Reaction Status Date / Time No Known Allergies Allergy Verified 12/04/22 09:02 Review of Systems Review of Systems: All systems reviewed & are unremarkable except as noted in HPI and below [facility] Past Medical History Medical History Flexor tendon bowstring Surgical History Surgical History Carpal tunnel syndrome History of appendectomy Social History Social History Smoking packs per day: 1 Smoking cigarettes per day: 20.0 Smoking status: Current every day smoker Tobacco type: cigarettes Exam Const: General: healthy appearing and no acute distress Nutritional Appearance: well nourished Orientation/consciousness: patient oriented x3 Limitations: no limitations HENMT: Head: normal to inspection Ears: external ears normal Other: tooth #14 removed with scant bleeding and it was very TTP Eyes: Conjunctivae: conjunctivae normal Pupils: Equal, round and reactive pupils present Neck: Neck: normal visual inspection Chest: Chest palpation & inspection: normal inspection of the chest Resp: Effort & Inspection: normal respiratory effort Cardio: Rate: regular rate Skin: General skin exam: normal color Rashes: no rashes Neuro: General: patient oriented x3 and moves all extremities Cranial nerves: Yes Nystagmus not present Extrem: General: normal to inspection Psych: Mental Status: mental status grossly normal Course Course Emergency Course: He was given a shot of toradol and told to take his home hydrocodone as well as continue his antibiotics. He was feeling better and scrolling on his phone after the Toradol Vital Signs Vital signs: Vital Signs Temperature 98.4 F 02/11/23 22:17 Pulse Rate 72 02/11/23 22:17 Respiratory Rate 18 02/11/23 22:17 Blood Pressure 150/82 H 02/11/23 22:17 Pulse Oximetry 98 02/11/23 22:17 Oxygen Delivery Room Air 02/11/23 22:17 Temperature 98.4 F 02/11/23 22:17 Pulse Rate 72 02/11/23 22:17 Respiratory Rate 18 02/11/23 22:17 Blood Pressure 150/82 H 02/11/23 22:17 Pulse Oximetry 98 02/11/23 22:17 Oxygen Delivery Room Air 02/11/23 22:17 Medical Decision Making Vital Signs Vital Signs: Vital Signs Temperature 98.4 F 02/11/23 22:17 Pulse Rate 72 02/11/23 22:17 Respiratory Rate 18 02/11/23 22:17 Blood Pressure 150/82 H 02/11/23 22:17 Pulse Oximetry 98 02/11/23 22:17 Oxygen Delivery Room Air 02/11/23 22:17 Temperature 98.4 F 02/11/23 22:17 Pulse Rate 72 02/11/23 22:17 Respiratory Rate 18 02/11/23 22:17 Blood Pressure 150/82 H 02/11/23 22:17 Pulse Oximetry 98 02/11/23 22:17 Oxygen Delivery Room Air 02/11/23 22:17 Discharge Plan Discharge Clinical Impression: Dry tooth socket Patient Disposition: Home, Self-Care Instructions: Toothache (ED) Prescriptions: No Action hydrocodone-ibuprofen 7.5-200 mg tablet 1 tablet PO Q6H PRN (Reason: Pain) amoxic
[2023-02-11] MEDS: KETOROLAC 30 MG/ML VIAL (*BKC) IM (22:36)
[2023-02-11 22:52] VITALS: BP 134/84; PULSE 75; RESP 18; TEMP 36.6; O2SAT 99
== END 2023-02-11 22:55 | disposition home or self-care (01) ==
PROVIDERS: Emergency Provider Family Medicine; PCP Internal Medicine
DX: M27.3 Alveolitis of jaws (principal); F17.210 Nicotine dependence, cigarettes, uncomplicated; Z79.891 Long term (current) use of opiate analgesic
CPT/HCPCS: 96372; 99283; J1885

== ENCOUNTER 2023-03-30 13:27 | Emergency (ER) | payer OTHER, SELFPAY ==
--- NOTE | ~2023-03-30 | XR_ITS ---
XR knee RT min 4V DATE: 03/30/2023 13:57 INDICATION: Medial right knee pain for 2 weeks TECHNIQUE: 5 views including crosstable lateral COMPARISON: None FINDINGS: No fracture or dislocation or joint effusion. No periosteal reaction or bone destruction. J oint spaces are well preserved. No radiopaque intra-articular loose body or chondrocalcinosis. IMPRESSION: Negative Reviewed, dictated and finalized at location A. IMPRESSION: Negative
[2023-03-30 13:32] VITALS: BP 130/74; PULSE 95; RESP 14; TEMP 37; O2SAT 100
--- NOTE | 2023-03-30 13:51 | ED.LOWEXIN ---
HPI - Extremity Injury (Lower) General Chief Complaint: Extremity Injury, Lower Stated Complaint: Right Knee Pain History of Present Illness HPI Narrative: PATIENT PRESENTS WITH CHRONIC RIGHT KNEE PAIN. PATIENT DENIES ANY INJURY STATES HE HAS HAD PAIN IN ALL ON AND OFF FOR THE LAST 2-3 MONTHS. PATIENT STATES HE HAS ARTHRITIS OF HIS NECK AND TAKES TYLENOL WITH CODEINE ON A REGULAR BASIS FOR HIS ARTHRITIS Related Data Home Medications Medication Instructions Recorded Confirmed hydrocodone 7.5 mg-ibuprofen 200 1 tablet PO Q6H PRN Pain 01/17/22 02/11/23 mg tablet Allergies Allergy/AdvReac Type Severity Reaction Status Date / Time No Known Allergies Allergy Verified 12/04/22 09:02 Review of Systems Review of Systems: CONSTITUTIONAL: DENIES FEVER, CHILLS, OR SWEATS. EYES: DENIES VISUAL CHANGES, REDNESS, OR DISCHARGE. ENT: DENIES RHINORRHEA, CONGESTION, SORE THROAT, OR OTALGIA. CARDIOVASCULAR: DENIES CHEST PAIN, PALPITATIONS, OR EDEMA. RESPIRATORY: DENIES COUGH OR DYSPNEA. GASTROINTESTINAL: DENIES ABDOMINAL PAIN, NAUSEA, VOMITING, OR DIARRHEA. GENITOURINARY: DENIES DYSURIA OR HEMATURIA. SKIN: DENIES RASH OR ITCHING. MUSCULOSKELETAL: DENIES BACK PAIN, JOINT PAIN, OR MYALGIA. NEUROLOGIC: DENIES HEADACHE, NUMBNESS, OR WEAKNESS. PSYCHIATRIC: DENIES ANXIETY OR DEPRESSION. [facility] Past Medical History Medical History Flexor tendon bowstring Surgical History Surgical History Carpal tunnel syndrome History of appendectomy Social History Social History Smoking packs per day: 1 Smoking cigarettes per day: 20.0 Smoking status: Current every day smoker Tobacco type: cigarettes Exam Narrative: GENERAL: WELL-APPEARING, WELL-NOURISHED, AND IN NO ACUTE DISTRESS. HEAD: NORMOCEPHALIC, ATRAUMATIC. EYES: PERRLA AND EOMI. ENT: NARES CLEAR, NO RHINORRHEA OR EPISTAXIS. MUCOUS MEMBRANES MOIST. NECK: SUPPLE. CHEST: CLEAR TO AUSCULTATION. NO RESPIRATORY DISTRESS. HEART: REGULAR RATE AND RHYTHM. NO MURMUR HEARD. NORMAL PERIPHERAL PULSES. ABDOMEN: SOFT, NONTENDER, NONDISTENDED, NORMAL ACTIVE BOWEL SOUNDS. EXTREMITIES: NORMAL RANGE OF MOTION. NO EDEMA. SKIN INTACT. NO DEFORMITY. NORMAL ROM, HAS FULL EXTENSION AND FLEXION. COMPARTMENTS SOFT. NEGATIVE ANTERIOR, POSTERIOR DRAWER SIGNS ON TEST. NO CREPITUS. DP PULSE, NORMAL CAPILLARY REFILL MCMURRAYS, PAIN TO RIGHT MEDIAL AND DISTAL KNEE WITH KNEE FLEXION, INTERNAL AND EXTERNAL FOOT ROTATION.NO ERYTHEMA OR INCREASED WARMTH TO CALF. . SKIN: WARM, DRY, NO RASH. NEURO: NO FOCAL DEFICITS. ALERT AND ORIENTED X3. PADMINI COMA SCALE EYE OPENING: SPONTANEOUS 4 PADMINI COMA SCALE MOTOR: OBEYS COMMANDS 6 PADMINI COMA SCALE VERBAL: ORIENTED 5 PADMINI COMA SCALE TOTAL 15 Course Course Level of Care: Express Care Visit Vital Signs Vital signs: Vital Signs Temperature 37.0 C 03/30/23 13:32 Pulse Rate 95 03/30/23 13:32 Respiratory Rate 14 03/30/23 13:32 Blood Pressure 130/74 03/30/23 13:32 Pulse Oximetry 100 03/30/23 13:32 Oxygen Delivery Room Air 03/30/23 13:32 Temperature 37.0 C 03/30/23 13:32 Pulse Rate 95 03/30/23 13:32 Respiratory Rate 14 03/30/23 13:32 Blood Pressure 130/74 03/30/23 13:32 Pulse Oximetry 100 03/30/23 13:32 Oxygen Delivery Room Air 03/30/23 13:32 PLEASE JACQUE SCHEDULE A FOLLOWUP VISIT WITH YOUR PERSONAL PHYSICIAN FOR FURTHER EVALUATION AND TREATMENT. INCLUDING RECHECK AND DISCUSSION OF YOUR BLOOD PRESSURE. IF YOUR SYMPTOMS PERSIST, CHANGE OR WORSEN SIGNIFICANTLY BEFORE YOU CAN CONTACT YOUR PERSONAL PHYSICIAN THEN PLEASE, WITHOUT DELAY, GO TO THE EMERGENCY DEPARTMENT FOR FURTHER EVALUATION MDM - Extremity Injury (Lower) Lab Data Labs: NEGATIVE KNEE X-RAY Discharge Plan Discharge Clinical Impression: Chronic knee pain, Acute knee pain
== END 2023-03-30 14:22 | disposition home or self-care (01) ==
PROVIDERS: Emergency Provider Nurse Practitioner Family; PCP Internal Medicine
DX: M25.561 Pain in right knee (principal); G89.29 Other chronic pain; M47.812 Spondylosis without myelopathy or radiculopathy, cervical region; F17.210 Nicotine dependence, cigarettes, uncomplicated
CPT/HCPCS: 73564; 99213; G0463

== ENCOUNTER 2023-07-18 04:03 | Emergency (ER) | payer OTHER, SELFPAY ==
[2023-07-18 04:12] VITALS: BP 125/72; PULSE 80; RESP 16; TEMP 36.8; O2SAT 97
--- NOTE | 2023-07-18 04:15 | ED.HA ---
HPI - Headache General Chief Complaint: Headache Stated Complaint: headache Source: patient Mode of arrival: ambulatory Limitations: no limitations History of Present Illness HPI Narrative: 43-year-old male with a history of smoking, asthma, chronic pain on [place] presents to the ER with --7 hour history of headache. headache is diffuse. Started gradually. No nausea/ vomiting. No photophobia. No prior history of headaches. No history of trauma. -- Nasal congestion the past few days MD elicited complaint: headache Onset (ago): hour(s) ( Started 7 hours ago.) Onset description: gradually Location: generalized Severity: moderate Quality & Timing: aching Exacerbating factors: none Relieving factors: nothing Context: occurred at rest Associated symptoms: none Treatments prior to arrival: none Related Data Home Medications Medication Instructions Recorded Confirmed No Home Medications 07/18/23 07/18/23 Allergies Allergy/AdvReac Type Severity Reaction Status Date / Time No Known Allergies Allergy Verified 07/18/23 04:05 Review of Systems Review of Systems: All systems reviewed & are unremarkable except as noted in HPI and below Constitutional: Constitutional: Reports as per HPI and Reports no additional constitutional complaints Eyes: Eyes: Reports as per HPI and Reports no additional eye complaints ENT: Reports system reviewed and no additional complaints, except as documented and Reports as per HPI Cardiovascular: Cardiovascular: Reports as per HPI and Reports no additional cardiovascular complaints Respiratory: Respiratory: Reports as per HPI and Reports no additional respiratory complaints Gastrointestinal: Gastrointestinal: Reports as per HPI and Reports no additional gastrointestinal complaints Genitourinary: Genitourinary: Reports no additional male genitourinary complaints and Reports as per HPI Musculoskeletal: Musculoskeletal: Reports no additional musculoskeletal complaints and Reports as per HPI Integumentary/Breasts: Skin/Breast: Reports system reviewed and no additional complaints, except as docu and Reports as per HPI Neurologic: Reports system reviewed and no additional complaints, except as documented, Reports as per HPI and Reports headache(s) Psychiatric: Psychiatric: Reports no additional psychiatric complaints and Reports as per HPI Endocrine: Endocrine: Reports no additional endocrine complaints and Reports as per HPI Hematologic/Lymphatic: Hematologic/Lymphatic: Reports no additional hematologic/lymphatic complaints and Reports as per HPI Allergic/Immunologic: Allergic/Immunologic: Reports no additional allergic/immunologic complaints and Reports as per HPI [facility] Past Medical History Medical History Flexor tendon bowstring Surgical History Surgical History Carpal tunnel syndrome History of appendectomy Social History Social History Smoking packs per day: 1 Smoking cigarettes per day: 20.0 Smoking status: Current every day smoker Tobacco type: cigarettes Exam Const: General: no acute distress Nutritional Appearance: well nourished Orientation/consciousness: patient oriented x3 Limitations: no limitations HENMT: Head: normal to inspection Ears: external ears normal Face/Nose/Sinus: Normal external nose present Face and sinus: normal facial exam Mouth: Yes Normal oral and palatal mucosa present Throat: posterior oropharynx normal Eyes: Conjunctivae: conjunctivae normal Pupils: Equal, round and reactive pupils present EOM: EOMs intact bilaterally Direct Ophthalmoscopy: no photophobia Neck: Neck: normal visual inspection, no lymphadenopathy and no meningeal signs Chest: Chest palpation & inspection: normal inspection of the chest Resp: Effort & Inspection: normal respiratory effort A
[2023-07-18] MEDS: KETOROLAC (*BKC) 60 MG/2 ML VIAL IM (04:27)
== END 2023-07-18 04:57 | disposition home or self-care (01) ==
PROVIDERS: Emergency Provider Internal Medicine Critical Care Medicine
DX: R51.9 Headache, unspecified (principal); F17.210 Nicotine dependence, cigarettes, uncomplicated; Z79.891 Long term (current) use of opiate analgesic
CPT/HCPCS: 96372; 99283; J1885

== ENCOUNTER 2023-07-26 13:29 | Emergency (ER) | payer OTHER, SELFPAY ==
[2023-07-26 13:30] VITALS: BP 122/73; PULSE 90; RESP 18; TEMP 36.9; O2SAT 97
--- NOTE | 2023-07-26 13:35 | ED.URI ---
HPI - URI/Sore Throat General Chief Complaint: Upper Respiratory Infection Stated Complaint: URI Time Seen by Provider: 07/26/23 13:33 Source: patient Mode of arrival: ambulatory Limitations: no limitations History of Present Illness HPI Narrative: Patient is a 43-year-old male with upper respiratory type symptoms for the past 1 day. MD elicited complaint: fever, cough, sore throat and nasal congestion Onset (ago): day(s) (1) Consistency: constant Severity: moderate Description of mucous: clear Able to tolerate fluids by mouth: Yes Exacerbating factors: nothing Relieving factors: nothing Context: sick contacts Associated symptoms: fever, chills, myalgias and cough Treatments prior to arrival: none Related Data Home Medications Medication Instructions Recorded Confirmed hydrocodone 7.5 mg-ibuprofen 200 1 tablet Q8-10H PRN Pain 07/26/23 07/26/23 mg tablet Allergies Allergy/AdvReac Type Severity Reaction Status Date / Time No Known Allergies Allergy Verified 07/26/23 13:31 Review of Systems Review of Systems: All systems reviewed & are unremarkable except as noted in HPI and below Constitutional: Constitutional: Reports no additional constitutional complaints Eyes: Eyes: Reports no additional eye complaints ENT: Reports system reviewed and no additional complaints, except as documented Cardiovascular: Cardiovascular: Reports no additional cardiovascular complaints Respiratory: Respiratory: Reports no additional respiratory complaints Gastrointestinal: Gastrointestinal: Reports no additional gastrointestinal complaints Genitourinary: Genitourinary: Reports no additional male genitourinary complaints Musculoskeletal: Musculoskeletal: Reports no additional musculoskeletal complaints Integumentary/Breasts: Skin/Breast: Reports system reviewed and no additional complaints, except as docu Neurologic: Reports system reviewed and no additional complaints, except as documented Psychiatric: Psychiatric: Reports no additional psychiatric complaints Endocrine: Endocrine: Reports no additional endocrine complaints Hematologic/Lymphatic: Hematologic/Lymphatic: Reports no additional hematologic/lymphatic complaints Allergic/Immunologic: Allergic/Immunologic: Reports no additional allergic/immunologic complaints PMFSH Past Medical History Medical History Flexor tendon bowstring Surgical History Surgical History Carpal tunnel syndrome History of appendectomy Social History Social History Smoking packs per day: 1 Smoking cigarettes per day: 20.0 Smoking status: Current every day smoker Tobacco type: cigarettes Exam Const: General: ill appearing Nutritional Appearance: well nourished Orientation/consciousness: patient oriented x3 HENMT: Head: normal to inspection Ears: external ears normal Face/Nose/Sinus: Normal external nose present Eyes: Conjunctivae: conjunctivae normal Pupils: Equal, round and reactive pupils present EOM: EOMs intact bilaterally Neck: Neck: normal visual inspection Chest: Chest palpation & inspection: normal inspection of the chest Resp: Effort & Inspection: normal respiratory effort Auscultation: clear to auscultation bilaterally Cardio: Rate: regular rate Rhythm: regular rhythm Heart sounds: no murmurs GI: Inspection: non-distended GI Palp: Yes Soft to palpation and No Tenderness to palpation present (GI) Auscultation: normal bowel sounds : General: Yes bladder normal to palpation Back/Spine/Pelvis: Back: no CVA tenderness Skin: General skin exam: normal color Rashes: no rashes Wounds: no wounds Neuro: General: patient oriented x3 Cranial nerves: Yes Nystagmus not present Speech: normal speech Extrem: General: normal to inspection Psych: Mental Status: mental status gross
[2023-07-26 14:10] LABS: SARS-CoV-2 RNA PCR Positive (Negative)
[2023-07-26 14:27] LABS: Influenza A QL RT-PCR Negative (Negative); Influenza B QL RT-PCR Negative (Negative); RSV RNA, RT-PCR Negative (Negative)
[2023-07-26 14:55] VITALS: BP 124/75; PULSE 82; RESP 16; O2SAT 97
== END 2023-07-26 14:56 | disposition home or self-care (01) ==
PROVIDERS: Emergency Provider Emergency Medicine; PCP Internal Medicine
DX: U07.1 COVID-19 (principal); F17.210 Nicotine dependence, cigarettes, uncomplicated; Z79.891 Long term (current) use of opiate analgesic
CPT/HCPCS: 87637; 99283

== ENCOUNTER 2024-12-05 19:36 | Emergency (ER) | payer OTHER, SELFPAY ==
--- OUTSIDE RECORDS SUMMARY | 2024-12-05 19:39 | XMS_ITS | Encounter Summary ---
Author Organization [facility] Address [address] [place] [address] Phone Care Team Providers Care Coat Examiner Name Role Phone Jones Aly MD Primary Care Provider Henry Wilkes DPM Unavailable [phone] Cornelio Ruelas MD Unavailable Reason for Visit * Reason Onset Date Comments Medication Refill 06/29/2020 vicoprofen Encounter Details Date Type Department Care Team (Late st Contact Info) Description 06/29/2020 Refill [facility] - Family [facility] [address] [place] [address] Jones Aly MD [address] [address] Medication Refill (vicoprofen) Social History Tobacco Use Types Packs/Day Years Used Date Smoking Tobacco: Every Day Cigarettes Smokeless Tobacco: Never Alcohol Use Standard Drinks/Week Comments Yes 0 (1 standard drink = 0.6 oz pur e alcohol) once a week PHQ-2 Answer Date Recorded PHQ-2 Score 1 10/20/2019 Sex and Gender Information Value Date Recorded Sex Assigned at Not on file Legal Sex Male 12:25 AM CDT Gender Identity Not on file Sexual Orientation Not on file COVID-19 Exposure Response Date Recorded In the last month, have you been in contact with someone who was confirmed or suspected to have Coronavirus / COVID-19? No / Unsure 06/22/2020 3:17 PM REGULATORY LEAD documented as of this encounter Miscellaneous Notes * Telephone Encounter - Jones Aly MD - 07/01/2020 9:41 AM CST Prescription pending signature LATORY LEAD * Telephone Encounter - Milagros Mauricio RN - 06/29/2020 4:24 PM CST Last OV 06/21/20 - follow up 07/19/20 - last Rx 05/30/20 Medication failed the protocol, provider to review and approve the medication order if appropriate. Requested Prescriptions Pending Prescriptions Disp Refills HYDROcodone-ibuprofen (Vicoprofen) 7.5-200 MG Tablet 120 Tab 0 Sig: Take 1 Tab by mouth every 6 hours as needed for Moderate or more severe pain. Not Delegated - Analgesics: Opioid Agonist Combinations Failed - 06/29/2020 4:12 PM Failed - This refill cannot be delegated Passed - Valid encounter within last 6 months Past Office Visits Recent Outpatient Visits 1 week ago Arthralgia of both hands [facility] - Jones Marina MD 4 weeks ago Tobacco abuse [facility] Jones Marina MD 4 months ago Cervicalgia [facility] Anupama Pickard APN, AUDIT SPEC 8 months ago Cervicalgia [facility] Jones Marina MD 1 year ago Cervicalgia [facility] Jones Marina MD Upcoming Appointments Future Appointments In 2 weeks Jones Aly MD [facility] PENELOPE Singh In 2 months Jones Aly MD [facility] PENELOPE Gordon CONFLICTS ANALYST - Recent and Past Visits Recent Visits Date Type Provider Dept 06/21/20 Office Visit Jones Aly MD [facility] 05/31/20 Office Visit Jones Aly MD [facility] 02/29/20 Office Visit Anupama Breaux APN, AUDIT SPEC [facility] 10/20/19 Office Visit Jones Aly MD [facility] 06/09/19 [facility] Showing recent visits within past 460 days with a meds authorizing provider and meeting all other requirements Future Appointments Date Type Provider Dept 07/19/20 Appointment Jones Aly MD [facility] 08/30/20 Appointment Jones Aly MD [facility] Showing future appointments within next 90 days with a meds authorizing provider and meeting all other requirements LATORY LEAD * Telephone Encounter - Mari Gutierrez - 06/29/2020 3:46 PM CST Received: []FAX [x]TELEPHONE CALL []MYCHART from: []PHARMACY [x]PATIENT/OTHER regarding medication management. Medication name and dose: Requested Prescriptions Pending Prescriptions Disp Refills ??? HYDROcodone-ibuprofen (Vicoprofen) 7.5-200 MG Tablet 120 Tab 0 Sig: Take 1 Tab by mouth every 6 hours as needed for Moderate or more severe pain. Quantity: (30 day, 90 day, 3 monthly scripts) 30 day Pharmacy preference for this medication: [facility] Outcome: [x]Medication pended, routed to surescripts []Medication refused []Informed caller of refills at pharmacy []Additional message to medication management RN []Verbal authorization for written order to pharmacy []Additional message to provider []Verified medication with pharmacy asmita Medication Management LATORY LEAD documented in this encounter Plan of Treatment Upcoming Encounters Date Type Department Care Team (Late st Contact Info) Description 12/24/2024 10:00 AM CDT Hospital Encounter [facility] Lab Periop [address] [place] [address] Cornelio Ruelas MD #[address] [address] 12/24/2024 10:00 AM CDT - 12/24/2024 10:30 AM CDT [facility] [address] [place] [address] Cornelio Ruelas MD #[address] [address] COLONOSCOPY Scheduled Procedures Name Priority Associated Diagnoses Date/Ti me COLONOSCOPY HISTORY OF COLON POLYPS 12/24/2024 10:00 AM CDT documented as of this encounter Visit Diagnoses Diagnosis Cervicalgia documented in this encounter Additional Health Concerns Infection Onset Date Last Indicated Resolved Time COVID - 19 04/22/2021 04/22/2021 05/12/2021 12:1 6 AM CDT Assessment Noted Time PHQ-9 Depression Total Score: 1 10/20/19 20 4:06 PM CDT documented as of this encounter Care Teams Coat Examiner Relationship Specialty Start Date End Date Jones Aly MD #[address] [address] PCP - General Family Medicine 06/26/15 Henry Wilkes DPM #[address] [address] Podiatry 08/02/16 Cornelio Ruelas MD #[address] [address] Consulting Physician Colon and Rectal Surgery 10/27/24 documented as of this encounter
--- OUTSIDE RECORDS SUMMARY | 2024-12-05 19:39 | XMS_ITS | Clinical Summary ---
Author Organization [facility] Address [address] [place] [address] Care Team Providers Care Mica Layer Name Role Phone Unavailable Primary Care Provider Unavailabl e Source Comments [facility],non-owned Affiliates and Associated Physician Practices is amultiple site organization consisting of ambulatory clinics and hospital sitesin [place], [place], [place] and [place]. This disclosure is being madepursuant to the Care Everywhere program and may not contain all information available regarding this patient. Last updated 18.[facility] Allergies No known active allergies Medications * Be aware that medications may not be up to date on this document. Alwaysverify current medications with the patient. HYDROmorphone (DILAUDID) 2 MG tablet Take 1 Tab by mouth every 4 hours as needed for Pain. 20 0 0 Active silver sulfADIAZINE (SILVADENE) 1 % cream Apply to affected area daily. 50 grams 0 0 Active Social History Tobacco Use Types Packs/Day Years Used Date Smoking Tobacco: Former Alcohol Use Standard Drinks/Week Comments No 0 (1 standard drink = 0.6 oz pur e alcohol) Sex and Gender Information Value Date Recorded Sex Assigned at Not on file Legal Sex Male 2:11 PM CDT Gender Identity Not on file Sexual Orientation Not on file Last Filed Vital Signs Vital Sign Reading Time Taken Comments Blood Pressure 131/57 02/20/2010 4:00 PM CDT Pulse 92 02/20/2010 4:00 PM CDT Temperature 37 C (98.6 F) 02/20/2010 4:00 PM CDT Respiratory Rate 18 02/20/2010 4:00 PM CDT Oxygen Saturation - - Inhaled Oxygen Concentration - - Weight 88.5 kg (195 lb) 02/20/2010 1:43 PM CDT Height 175.3 cm (5' 9 ) 02/20/2010 1:43 PM CDT Body Mass Index 28.8 02/20/2010 1:43 PM CDT Plan of Treatment Health Maintenance Due Date Last Done Comments COLOGUARD (AGES 45-75) - COL ON CA SCREENING 1979 COLON MONITORING 1979 COLONOSCOPY - COLON CA SCREENING 1979 CT COLONOGRAPHY - COLON CA SCREENING 1979 Colorectal Cancer Screening 1979 FIT - COLON CA SCREENING 1979 FLEX SIG - COLON CA SCREENING 1979 LIPID TESTING 1979 HIV SCREENING 1994 HEPATITIS C SCREENING 02/24/1997 DTAP/TDAP/TD VACCINES (1 - Tdap) 1998 HEPATITIS B VACCINE (1 of 3 - 19+ 3-dose series) 1998 COVID-19 VACCINE ( - 2023-2 5 season) 2024 DEPRESSION SCREENING 08/05/2024 INFLUENZA VACCINE (Season Ended) 2025 ZOSTER VACCINE (1 of 2) 2029 HIB VACCINE Aged Out No longer eligi ble based on patient's age to complete this topic HPV VACCINE Aged Out No longer eligi ble based on patient's age to complete this topic MENINGOCOCCAL (Group B) VACC INE SHARED DECISION-MAKING Aged Out No longer eligibl e based on patient's age to complete this topic MENINGOCOCCAL GROUPS A/C/Y/W VACCINE Aged Out No longer eligible b ased on patient's age to complete this topic PNEUMOCOCCAL VACCINE Aged Out No long er eligible based on patient's age to complete this topic Insurance [place] MEDICAID - OUT OF STATE
--- OUTSIDE RECORDS SUMMARY | 2024-12-05 19:39 | XMS_ITS | Clinical Summary ---
Author Organization [facility] Address [address] [facility] [address] [place] [address] Phone Care Team Providers Care Inbound Sales Manager Name Role Phone Jones Aly MD Primary Care Provider [phone] Henry Wilkes DPM Unavailable [phone] Cornelio Ruelas MD Unavailable Allergies No known active allergies Medications tamsulosin (FLOMAX) 0.4 MG CapsuleIndicatio ns:Benign localized prostatic hyperplasia with lower urinary tract symptoms (LUTS),Difficult y urinating Take 1 Capsule by mouth daily. 90 Capsule 3 5 Active HYDROcodone-acet aminophen (NORCO) 7.5-325 MG TabletIndication s:Cervicalgia Take 1 Tablet by mouth every 6 hours as needed for Moderate or more severe pain. 120 Tablet 5 Active HYDROcodone-acet aminophen (NORCO) 7.5-325 MG TabletIndication s:Cervicalgia Take 1 Tablet by mouth every 6 hours as needed for Moderate or more severe pain. 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 Pain in limb Encounters Date Type Department Care Team Description 11/10/2024 MyChart RX Renewal [facility] [address]2 [place] [address] Jones Aly MD Medication Renewal Reviewed 10/27/2024 1:00 PM CDT Office Visit [facility] [address] [address] Jones Aly MD Kumar, Raman, MD Hx of colonic polyps (Primary Dx); Screening for colon cancer Discharge Disposition: Discharged to home or Selfcare 10/27/2024 Travel 10/05/2024 MyChart RX Renewal [facility] [address] [place] [address] Jones Aly MD Medication Renewal Reviewed 09/07/2024 Refill [facility] [address] [place] [address] Jones Aly MD Medication Refill; Erroneous Encounter - Disregard from Last 3 Months Immunizations Immunization Administration Dates Next Due Influenza Vaccine 06/07/2022 Influenza Vaccine greater than 3 yrs 05/05/2013 Influenza Vaccine less than 3 yrs 04/15/2024 Influenza Vaccine, Quadrivalent, PF 06/06/2021,1 08/09/2018 Influenza, Seasonal, Injectable, Undefined 05/05 Pneumococcal conjugate PCV20 , polysaccharide [id number] conjugate, adjuvant, PF 06/25/2022 TD VACCINE 08/05/2008,06/11/1994 TDAP Vaccine 12/10/2023 12/09/2033 Family History Medical History Relation Name Comments No Known Problems Daughter 1 No Known Problems Daughter 2 MVA Father Heart Attack Maternal Grandfather No Known Problems Maternal Grandmother Aneurysm Mother Cataract Mother Cerebral Anuerysm Mother Hypertension Mother No Known Problems Paternal Grandfather No Known Problems Paternal Grandmother No Known Problems Son 1 No Known Problems Son 2 No Known Problems Son 3 Relation Name Status Comments Daughter 1 Alive Daughter 2 Alive Father Maternal Grandfather Maternal Grandmother Mother Paternal Grandfather Paternal Grandmother Son 1 Alive Son 2 Alive Son 3 Alive Social History Tobacco Use Types Packs/Day Years Used Date Smoking Tobacco: Former Cigarettes 1.5 29.9 1 994 - 07/2023 Smokeless Tobacco: Never Tobacco Cessation:Counseling Given: Not Answered Alcohol Use Standard Drinks/Week Comments Yes 12 (1 standard drink = 0.6 oz pu re alcohol) 12 pack a week [facility] [employer] Answer Date Recorded In the past 12 months has th e [place], gas, oil, or water [employer] threatened to shut off services in your home? No 09/26/2023 Social Connection and Isolation Panel [NHANES] A nswer Date Recorded In a typical week, how many times do you talk on the phone with family, friends, or neighbors? Twice a week 09/26/2023 How often do you get together with friends or re latives? Once a week 09/26/2023 How often do you attend roman catholic or mu-ism serv ices? Never 09/26/2023 Do you belong to any clubs o r organizations such as roman catholic groups, unions, fraternal or athletic groups, or school groups? No 09/26/2023 How often do you attend meet ings of the clubs or organizations you belong to? Never 09/26/2023 Are you , , di vorced, , never , or living with a partner? 09/26/2023 AUDIT-C Answer Date Recorded Q1: How often do you have a drink containing alc ohol? 2-4 times a month 09/26/2023 Q2: How many drinks containi ng alcohol do you have on a typical day when you are drinking? 3 or 4 09/26/2023 Q3: How often do you have si x or more drinks on one occasion? Less than monthly 09/26/2023 Overall Financial Resource Strain (CARDIA) Answe r Date Recorded How hard is it for you to pa y for the very basics like food, housing, medical care, and heating? Not hard at all 09/26/2023 PHQ-2 Answer Date Recorded Total Score - Questions 1-9 0 11/03 [facility] [place] of Occupat ional Health - Occupational Stress Questionnaire Answer Date Recorded Do you feel stress - tense, restless, nervous, or anxious, or unable to sleep at night because your mind is troubled all the time - these days? Not at all 09/26/2023 Exercise Vital Sign Answer Date Recorde d On average, how many days pe r week do you engage in moderate to strenuous exercise (like a brisk walk)? 0 days 09/26/2023 On average, how many minutes do you engage in exercise at this level? 0 min 09/26/2023 Hunger Vital Sign Answer Date Recorded Within the past 12 months, y ou worried that your food would run out before you got the money to buy more. Never true 09/26/19 24 Within the past 12 months, t he food you bought just didn't last and you didn't have money to get more. Never true 09/26/2023 PRAPARE - Transportation Answer Date Re corded In the past 12 months, has l ack of transportation kept you from medical appointments or from getting medications? No 09/06 In the past 12 months, has l ack of transportation kept you from meetings, work, or from getting things needed for daily living? No 09/26/2023 Housing Stability Vital Sign Answer Jacques e Recorded In the last 12 months, was t here a time when you were not able to pay the mortgage or rent on time? No 09/26/2023 In the last 12 months, how many places have you lived? 1 09/26/2023 In the last 12 months, was t here a time when you did not have a steady place to sleep or slept in a jail (including now)? No 09/26/2023 Education Answer Date Recorded What is the highest level of school you have completed or the highest degree you have received? GED or equivalent Sexually Active Control Partners Comments Yes Female Sex and Gender Information Value Date Recorded Sex Assigned at Not on file Legal Sex Male 12:25 AM CDT Gender Identity Not on file Sexual Orientation Not on file Last Filed Vital Signs Vital Sign Reading Time Taken Comments Blood Pressure 128/72 10/27/2024 12:47 PM CDT Pulse 88 10/27/2024 12:47 PM CDT Temperature 36.5 C (97.7 F) 10/27/2024 12:47 PM CDT Respiratory Rate 16 08/31/2024 9:32 AM DIRECTOR INTELLIGENCE ANALYSIS PROGRAMS Oxygen Saturation 98% 10/27/2024 12:47 PM CDT Inhaled Oxygen Concentration - - Weight 89.8 kg (198 lb) 10/27/2024 12:47 PM CDT Height 175.3 cm (5' 9 ) 10/27/2024 12:47 PM CDT Body Mass Index 29.24 10/27/2024 12:47 PM CDT Plan of Treatment Upcoming Encounters Date Type Department Care Team (Late st Contact Info) Description 12/24/2024 10:00 AM CDT [facility] [address] [place] [address] Cornelio Ruelas MD #[address] [address] 12/24/2024 10:00 AM CDT - 12/24/2024 10:30 AM CDT [facility] [address] [place] [address] Cornelio Ruelas MD #[address] [address] COLONOSCOPY Scheduled Procedures Name Priority Associated Diagnoses Date/Ti me COLONOSCOPY HISTORY OF COLON POLYPS 12/24/2024 10:00 AM CDT Health Maintenance Due Date Last Done Comments Colonoscopy 2024 07/24/2012 Colorectal Cancer Screening 2024 Td Immunization Every 10 Years (Adults With 1 Tdap) 12/09/2033 12/10/2023, 08/05/2008, 06/11/1994 Respiratory Syncytial Virus (RSV) Immunization (Adult) (1 - 1-dose 75+ series) 2054 07/24/2012 Pneumococcal Immunization Combined Aged Out 06/25/2022 No longer eligible based on patient's age to complete this topic TdaP Immunization Discontinued 12/10/2023 Influenza Immunization Completed , 06/07/2022, 06/06/2021, Additional history exists Hepatitis B Immunization Discontinued Hepatitis C Virus (HCV) Screening Discontinued Meningococcal Immunization (ACWY) Aged Out No longer eligible based on patient's age to complete this topic Rotavirus Immunization Aged Out No lo nger eligible based on patient's age to complete this topic SARS-COV-2 Immunization Discontinued Procedures Procedure Name Priority Date/Time Associated Diagnosis Comments HM COLONOSCOPY Routine 07/24/2012 from Last 3 Months or Most Recently Relevant to Health Maintenance Results * HM COLONOSCOPY (07/24/2012) Adiel Burks MD PROCEDURE/MINOR SURGICAL ORDERAB LES Final Result from Last 3 Months or Most Recently Relevant to Health Maintenance Insurance [facility] [place] MED[place] Advance Directives * No Code Status (Latest Code Status on File) Date Activated Date Inactivated Comments 09/19/2018 9:04 AM 08/29/2020 7:07 AM UDS 09/19/18 Care Teams Inbound Sales Manager Relationship Specialty Start Date End Date Jones Aly MD #[address] [address] PCP - General Family Medicine 06/26/15 Henry Wilkes DPM #[address] [address] Podiatry 08/02/16 Cornelio Ruelas MD #[address] [address] Consulting Physician Colon and Rectal Surgery 10/27/24
--- OUTSIDE RECORDS SUMMARY | 2024-12-05 19:39 | XMS_ITS | Referral Summary ---
Author Organization [facility] Address [address] [place] [address] Care Team Providers Care Foundation Digger Name Role Phone Jones Aly MD Primary Care Provider + [phone] Allergies No known active allergies Medications HYDROcodone-ibu profen (VICOPROFEN) 7.5-200 mg per tablet take 1 tablet by oral route every 4 - 6 hours as needed for pain not to exceed 5 tablets in 24hrs 0 0 09/01/2014 Active HYDROcodone-noah taminophen (NORCO) 5-325 mg per tabletIndicatio ns:Pain Take 1-2 tablets by mouth every 4 (four) hours as needed for pain. Do not exceed 8 tablets/day. 12 tablet 04/01/2018 Active albuterol HFA (PROVENTIL HFA,VENTOLIN HFA,PROAIR HFA) 90 mcg/actuation inhaler Inhale 2 puffs every 6 (six) hours as needed for wheezing. 1 Inhaler 05/22/2018 Active cyclobenzaprine (FLEXERIL) 10 mg tabletIndicatio ns:Muscle Spasm Take 1 tablet (10 mg total) by mouth 3 (three) times a day as needed for muscle spasms 15 tablet 03/20/2021 Active Active Problems Problem Noted Date Diagnosed Date Nausea and vomiting 09/21/2016 Overview (11/08/2016): Nausea and vomiting in adult Social History Tobacco Use Types Packs/Day Years Used Date Smoking Tobacco: Heavy Smoker Cigarettes Smokeless Tobacco: Never Comments:Smoking History Pac ks/day: 20 Cigarettes Alcohol Use Standard Drinks/Week Comments Yes 0 (1 standard drink = 0.6 oz pur e alcohol) Personal Safety Answer Date Recorded Getting School Help Needed Not on file 09/28 Sex and Gender Information Value Date Recorded Sex Assigned at Not on file Legal Sex Male 12:04 PM BILINGUAL SECRETARY Gender Identity Not on file Sexual Orientation Not on file Last Filed Vital Signs Vital Sign Reading Time Taken Comments Blood Pressure 128/77 03/20/2021 4:49 PM CDT Pulse 82 03/20/2021 4:49 PM CDT Temperature 36.9 C (98.4 F) 03/20/2021 12:01 PM CDT Respiratory Rate 16 03/20/2021 4:49 PM CDT Oxygen Saturation 97% 03/20/2021 4:49 PM CDT Inhaled Oxygen Concentration - - Weight 93 kg (205 lb) 03/20/2021 12:01 PM CDT Height 175.3 cm (5' 9 ) 03/20/2021 12:01 PM CDT Body Mass Index 30.27 03/20/2021 12:01 PM CDT Plan of Treatment Not on file Insurance [facility] Care Teams Foundation Digger Relationship Specialty Start Date End Date Jones Aly MD [address] [address] PCP - General 11/02/16
--- OUTSIDE RECORDS SUMMARY | 2024-12-05 19:39 | XMS_ITS | Clinical Summary ---
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
[2024-12-05 19:44] VITALS: BP 136/83; PULSE 68; RESP 20; TEMP 37.1; O2SAT 99
--- NOTE | 2024-12-05 19:50 | ED.DENTAL ---
HPI - Dental/Oral General Chief complaint: Dental/Oral Stated complaint: toothache Time Seen by Provider: 12/05/24 19:40 Source: patient and RN notes reviewed Mode of arrival: ambulatory Limitations: no limitations History of Present Illness HPI Narrative: 44-year-old male presents Express Care complaining of a possible dental abscess and dental pain. Patient noticed gum swelling and pain in his right upper mouth approximately 9 days ago. Patient called his dentist last week and cannot get in until this Saturday. Patient has a history of dental disease and dental abscess. Patient has had teeth pulled in the past that were infected. Patient said the pain is swelling was getting worse and he called his dentist and they advised him to go to an ER or urgent care for antibiotics. Patient denies any a locked jaw, difficulty breathing, swelling in his throat, neck, or face, excessive drooling, or any other concerns. Patient denies any fevers, body aches, chills. Related Data Home Medications ?Medication ?Instructions ?Recorded ?Confirmed ?Last Taken ?Type hydrocodone 7.5 mg-acetaminophen tablet 12/05/24 Unknown History 325 mg tablet Allergies Allergy/AdvReac Type Severity Reaction Status Date / Time No Known Allergies Allergy Verified 12/05/24 19:43 Review of Systems Review of Systems: CONSTITUTIONAL: Denies fever, chills, or sweats. EYES: Denies visual changes, redness, or discharge. ENT: Denies rhinorrhea, congestion, sore throat,, throat swelling, difficulty swallowing, or otalgia. Mouth: Positive for dental pain, dental caries, and gum swelling. Negative for trismus, excessive drooling CARDIOVASCULAR: Denies chest pain, palpitations, or edema. RESPIRATORY: Denies cough or dyspnea. GASTROINTESTINAL: Denies abdominal pain, nausea, vomiting, or diarrhea. GENITOURINARY: Denies dysuria or hematuria. SKIN: Denies rash or itching. MUSCULOSKELETAL: Denies back pain, joint pain, or myalgia. NEUROLOGIC: Denies headache, numbness, or weakness. PSYCHIATRIC: Denies anxiety or depression. All other systems reviewed are negative, except as documented in HPI. [facility] Past Medical History Medical History Flexor tendon bowstring Surgical History Surgical History Carpal tunnel syndrome History of appendectomy Social History Social History Smoking packs per day: 1 Smoking cigarettes per day: 20.0 Smoking status: Current every day smoker Tobacco type: cigarettes Comments At the time of my signature, I reviewed and agree with the nursing past medical, surgical, social, and family history. There is no relevant family history pertinent to the patient complaint. Exam Narrative: GENERAL: This is a well-nourished, well-developed adult, in no apparent distress. They are non ill-appearing, nontoxic appearing. HEAD: normocephalic, atraumatic. EYES: Sclera clear/white. Conjunctiva normal. Vision is grossly intact. Extraocular movements intact EARS: External ears normal,Hearing grossly intact. NOSE: External nose normal with no obvious nasal discharge, nasal turbinates without redness, no rhinorrhea. THROAT: Mucous membranes moist, posterior pharynx clear, without erythema or swelling. Uvula midline. Normal movement of soft palate. Mouth: Multiple dental caries throughout patient's mouth. Missing teeth noted. There is gingivitis to the right upper gum line. The right upper gums are erythematous without area of fluctuance or induration. No exudate. Hard palate without swelling, pain, redness, discharge. Tongue is normal. No swelling or pain under the tongue. NECK: Neck supple, non-tender without lymphadenopathy, masses or thyromegaly. CARDIOVASCULAR: Regular rate and rhythm RESPIRATORY: Respiratory rate normal, respiratory effort nonlabored, no respiratory distress SKIN: warm, Dry, intact with no suspicious lesions or rash, good texture and turgor. NEURO: awake, alert, and oriented to person, place and time. There were no obvious focal neurologic abnormalities. EXTREMITIES: No joint tenderness, effusion, or edema noted. Course Course Emergency Course: Portions of this record may have been created with voice recognition software Level of Care: Express Care Visit Vital Signs Vital signs: Vital Signs Temperature 98.8 F 12/05/24 19:44 Pulse Rate 68 12/05/24 19:44 Respiratory Rate 20 12/05/24 19:44 Blood Pressure 136/83 12/05/24 19:44 Pulse Oximetry 99 12/05/24 19:44 Oxygen Delivery Room Air 12/05/24 19:44 Temperature 98.8 F 12/05/24 19:44 Pulse Rate 68 12/05/24 19:44 Respiratory Rate 20 12/05/24 19:44 Blood Pressure 136/83 12/05/24 19:44 Pulse Oximetry 99 12/05/24 19:44 Oxygen Delivery Room Air 12/05/24 19:44 Reviewed MDM - Dental/Oral MDM Narrative Medical decision making narrative: No evidence of dental abscess in patient's mouth. Patient's right upper gum line is swollen without area of fluctuance or induration. Given the worsening swelling and pain I will go ahead and treat for a dental infection with Augmentin. Patient has a follow-up with his dentist this coming Saturday. Dental hygiene discussed with patient. Discussed physical exam findings. Advised supportive measures and signs/symptoms to go to the ER. Pt is appropriate for outpt treatment and f/u. Differential Diagnosis Differential diagnosis: Likely gingival abscess, dental caries, dental abscess and other (Gingivitis) Critical Care Time Critical Care Time Critical Care Time: No Discharge Plan Discharge Clinical Impression: Dental caries Patient Disposition: Home Condition: Stable Instructions: Antibiotic Form, Dental Abscess (ED) Additional Instructions: Please take the antibiotics as directed. Please pressure teeth at least twice a day followed by mouthwash at least twice a day. Please flush your teeth at least twice a day. Follow-up with your dentist on Saturday. Return to the emergency department if he develops worsening swelling, difficulty breathing, excessive drooling, unable to open her jaw, or any other concerns. Patient Language: Latvian Prescriptions: New amoxicillin-pot clavulanate 875-125 mg tablet 1 tablet PO Q12H 7 Days Qty: 14 0RF No Action hydrocodone-acetaminophen 7.5-325 mg tablet Follow-up/Referrals: Sheeba,Jones Campos MD [Primary Care Provider] - Time of Disposition: 19:49
== END 2024-12-05 19:52 | disposition home or self-care (01) ==
PROVIDERS: PCP Internal Medicine
DX: K02.9 Dental caries, unspecified (principal); F17.210 Nicotine dependence, cigarettes, uncomplicated; Z79.891 Long term (current) use of opiate analgesic
CPT/HCPCS: 99213; G0463

== ENCOUNTER 2025-01-21 14:44 | Emergency (ER) | payer OTHER, SELFPAY ==
[2025-01-21 14:48] VITALS: BP 151/83; PULSE 74; RESP 20; TEMP 36.9; O2SAT 98
--- OUTSIDE RECORDS SUMMARY | 2025-01-21 14:54 | XMS_ITS | Clinical Summary ---
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
--- OUTSIDE RECORDS SUMMARY | 2025-01-21 14:54 | XMS_ITS | Clinical Summary ---
Author Organization [facility] Address [address] [facility] [address] [place] [address] Phone Care Team Providers Care Supervisor Solder Making Name Role Phone Jones Aly MD Primary Care Provider [phone] Henry Wilkes DPM Unavailable [phone] Cornelio Ruelas MD Unavailable Allergies No [...] or more severe pain. 120 Tablet 5 01/19/20 25 Discontinu ed(Reorder ) Active Problems Problem Noted Date Diagnosed Date Cervicalgia 12/24/2016 Biceps tendinitis of left upper extremity 2015 Seborrhea 07/11/2016 Neck pain of over 3 months duration 09/14/2015 Corns Overview (07/12/2015): x6 Metatarsalgia Hammer toe Overview (07/12/2015): Acquired deformity of toe Pain in limb Encounters Date Type Department Care Team Description 01/14/2025 12:30 PM CDT Office Visit [facility] [address] [place] [address] Jones Aly MD Cervicalgia (Primary Dx); Midline thoracic back pain, unspecified chronicity; Benign localized prostatic hyperplasia with lower urinary tract symptoms (LUTS); Encounter for long-term (current) use of medications Discharge Disposition: Discharged to home or Selfcare 01/14/2025 Travel 01/12/2025 MyChart RX Renewal [facility] [address] [place] [address] Jones Aly MD Medication Renewal Declined 12/10/2024 MyChart RX Renewal [facility] [address] [place] [address] Jones Aly MD Medication Renewal Reviewed 11/10/2024 MyChart RX Renewal [facility] [address] [place] [address] Jones Aly MD Medication Renewal Reviewed 10/27/2024 1:00 PM CDT Office Visit [facility] General Surgery [facility] [address] [address] Jones Aly MD Kumar, Raman, MD Hx of colonic polyps (Primary Dx); Screening for colon cancer Discharge Disposition: Discharged to home or Selfcare 10/27/2024 Travel from Last 3 Months Immunizations Immunization Administration Dates Next Due Influenza Vaccine 06/07/2022 Influenza Vaccine greater than 3 yrs 05/05/2013 Influenza Vaccine less than 3 yrs 04/15/2024 Influenza Vaccine, Quadrivalent, PF 06/06/2021,1 08/09/2018 Influenza, Seasonal, Injectable, Undefined 05/05 Pneumococcal conjugate PCV20 , polysaccharide NSA220 conjugate, adjuvant, PF 06/25/2022 TD VACCINE 08/05/2008,06/11/1994 [...] Smoking Tobacco: Former Cigarettes 1.5 29.9 1 07/2023 Smokeless Tobacco: Never Tobacco Cessation:Counseling Given: No Alcohol Use Standard Drinks/Week Comments Yes 12 (1 standard drink = 0.6 oz pu re alcohol) 12 pack a week DCITSities Answer Date Recorded In the past 12 months has [employer], gas, oil, or water [employer] threatened to shut off services in your home? No 09/26/2023 Social Connection and Isolation Panel Answer Date Recorded In a typical week, how many times do you talk on the phone with family, friends, or neighbors? Twice a week 09/26/2023 How often do you get together with friends or re latives? Once a week 09/26/2023 How often do you attend islam or buddhism serv ices? Never 09/26/2023 Do you belong to any clubs o r organizations such as islam groups, unions, fraternal or athletic groups, or [...] Total Score - Questions 1-9 0 11/03 [facility] - Occupational Stress Questionnaire Answer Date Recorded [...] place to sleep or slept in a prison (including now)? No 09/26/2023 Education Answer Date [...] Sign Reading Time Taken Comments Blood Pressure 124/76 01/14/2025 12:26 PM CDT Pulse 80 01/14/2025 12:26 PM CDT Temperature 36.8 C (98.2 F) 01/14/2025 12:26 PM CDT Respiratory Rate 16 01/14/2025 12:26 PM CDT Oxygen Saturation 97% 01/14/2025 12:26 PM CDT Inhaled Oxygen Concentration - - Weight 89.6 kg (197 lb 9.6 oz) 01/14/2025 12:26 PM CDT Height 175.3 cm (5' 9) 01/14/2025 12:26 PM CDT Body Mass Index 29.18 01/14/2025 12:26 PM CDT Plan of Treatment Upcoming Encounters Date Type Department Care Team (Late st Contact Info) Description 03/04/2025 10:00 AM CDT Hospital Encounter [facility]iop [address] [place] [address] Cornelio Ruelas MD #[address] [address] 03/04/2025 10:00 AM CDT - 03/04/2025 10:30 AM CDT [facility] [address] [place] [address] Cornelio Ruelas MD #[address] [address] COLONOSCOPY Scheduled Procedures Name Priority Associated Diagnoses Date/Ti me COLONOSCOPY HISTORY OF COLON POLYPS 03/04/2025 10:00 AM CDT Health Maintenance Due Date Last Done Comments Human Papillomavirus (HPV) Immunization (1 - Male 3-dose series) 1994 Cologuard 2024 Colonoscopy 2024 07/24/2012 Colorectal Cancer Screening 2024 Immunochemical Fecal Occult Blood 2024 Td Immunization Every 10 Years (Adults With 1 Tdap) 12/09/2033 12/10/2023, 08/05/2008, 06/11/1994 Respiratory Syncytial Virus (RSV) Immunization (Adult) (1 - 1-dose 75+ series) 2054 Pneumococcal Immunization Combined Aged Out 06/25/2022 No [...] Procedure Name Priority Date/Time Associated Diagnosis Comments UR TOXICOLOGY SCREEN 01/14/2025 12:00 AM CDT COLONOSCOPY Routine 07/24/2012 from Last 3 Months or Most Recently Relevant to Health Maintenance Results * UR TOXICOLOGY SCREEN (01/14/2025 12:00 AM CDT) 01/14/2025 Jones Aly MD URINE ORDERABLES Final Result SCAN * COLONOSCOPY (07/24/2012) Adiel Burks MD PROCEDURE/MINOR SURGICAL ORDERAB LES Final Result from Last 3 Months or Most Recently Relevant to Health Maintenance Insurance [facility] Advance Directives * No Code Status (Latest Code Status on File) Date Activated Date Inactivated Comments 09/19/2018 9:04 AM 08/29/2020 7:07 AM UDS 09/19/18 Care Teams Supervisor Solder Making Relationship Specialty Start Date End Date Jones Aly MD #2 [facility] [address] [place] [address] PCP - General Family Medicine 06/26/15 Henry Wilkes DPM #2 [facility] [address] [place] [address] Podiatry 08/02/16 Cornelio Ruelas MD [address]2 [facility] [address] [place] [address] Consulting Physician Colon and Rectal Surgery 10/27/24
--- OUTSIDE RECORDS SUMMARY | 2025-01-21 14:54 | XMS_ITS | Encounter Summary ---
Author Organization [facility] Address [address] [place] [address] Phone Care Team Providers Care Automatic Riveting Machine Operator Name Role Phone Jones Aly MD Primary Care Provider [phone] Henry Wilkes DPM Unavailable Cornelio Ruelas MD Unavailable Reason for Visit * Reason Onset Date Comments Medication Refill 06/29/2020 vicoprofen Encounter Details Date Type Department Care Team (Late st Contact Info) Description 06/29/2020 Refill [facility] - Family [facility] [address] [place] [id number] Jones Aly MD [address] [address] Medication Refill (vicoprofen) Social History Tobacco Use [...] COVID-19? 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 documented as of this encounter Miscellaneous Notes * Telephone Encounter - Jones Aly MD - 07/01/2020 9:41 AM CST Prescription pending signature ESTATE LAWYER * Telephone Encounter - Milagros Mauricio RN [...] 1 week ago Arthralgia of both hands [facility] - Jones Marina MD 4 weeks ago Tobacco abuse [facility] Jones Marina MD 4 months ago Cervicalgia [facility] Anupama Pickard APN, BIOPSYCHOLOGIST 8 months ago Cervicalgia [facility] Jones Marina MD 1 year ago Cervicalgia [facility] Jones Marina MD Upcoming Appointments Future Appointments In 2 weeks Jones Aly MD [facility] PENELOPE Singh In 2 months Jones Aly MD [facility] P[facility] [address] CT TECHNOLOGIST - Recent and Past Visits Recent Visits Date Type Provider Dept 06/21/20 Office Visit Jones Aly MD [facility] 05/31/20 Office Visit Jones Aly MD [facility] 02/29/20 Office Visit Anupama Breaux APN, BIOPSYCHOLOGIST [facility] 10/20/19 Office Visit Jones lAy MD [facility] 06/09/19 [facility] Showing recent visits within past 460 days with a meds authorizing provider and meeting all other requirements Future Appointments Date Type Provider Dept 07/19/20 Appointment Jones Aly MD [facility] 08/30/20 Appointment Jones Aly MD [facility] Showing future appointments within next 90 days with a meds authorizing provider and meeting all other requirements ESTATE LAWYER * Telephone Encounter - Mari Gutierrez - [...] []Verified medication with pharmacy asmita Medication Management ESTATE LAWYER documented in this encounter Plan of Treatment Upcoming Encounters Date Type Department Care Team (Late st Contact Info) Description 03/04/2025 10:00 AM CDT Hospital Encounter [facility] Gi Lab Periop [address] [place] [address] Cornelio Ruelas MD #[address] [address] 03/04/2025 10:00 AM CDT - 03/04/2025 10:30 AM CDT [facility] [address] [place] [address] Cornelio Ruelas MD #[address] [address] COLONOSCOPY Scheduled Procedures Name Priority Associated Diagnoses Date/Ti me COLONOSCOPY HISTORY OF COLON POLYPS 03/04/2025 10:00 AM CDT documented as of this encounter Visit Diagnoses Diagnosis Cervicalgia documented in this encounter Additional Health Concerns Infection Onset Date Last Indicated Resolved Time COVID - 19 04/22/2021 04/22/2021 05/12/2021 12:1 6 AM CDT Assessment Noted Time PHQ-9 Depression Total Score: 1 10/20/19 20 4:06 PM CDT documented as of this encounter Care Teams Automatic Riveting Machine Operator Relationship Specialty Start Date End Date Jones Aly MD #[address] [address] PCP - General Family Medicine 06/26/15 Henry Wilkes DPM #[address] [address] Podiatry 08/02/16 Cornelio Ruelas MD #[address] [address] Consulting Physician Colon and Rectal Surgery 10/27/24 documented as of this encounter
--- OUTSIDE RECORDS SUMMARY | 2025-01-21 14:54 | XMS_ITS | Referral Summary ---
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
--- OUTSIDE RECORDS SUMMARY | 2025-01-21 14:54 | XMS_ITS | Clinical Summary ---
Author Organization [facility] Address [address] [place] [address] Care Team Providers Care Press Breaker Name Role Phone Unavailable Primary Care Provider Unavailabl e Source Comments [facility],non-owned Affiliates and Associated Physician Practices is amultiple site organization consisting of ambulatory clinics and hospital sitesin [place], [place], [place] and [place]. This disclosure is being madepursuant to the Care Everywhere program and may not contain all information available regarding this patient. Last updated 18.[facility] Allergies No known active allergies Medications * [...] 1:43 PM CDT Height 175.3 cm (5' 9) 02/20/2010 1:43 PM CDT Body Mass Index [...]
--- NOTE | 2025-01-21 15:43 | ED.GENADULT ---
HPI - General Adult General Chief complaint: Upper Respiratory Infection Stated complaint: poss sinus infection Source: patient Mode of arrival: ambulatory Limitations: no limitations History of Present Illness HPI narrative: Pt presents for evaluation of sinus symptoms for the past 3 days. He has a history of bacterial sinusitis and this feels similar. He is exposed environmental irritants in the workplace. He reports sinus congestion and thick green/dark colored nasal drainage. Denies any fever, sore throat, otalgia, cough, shortness of breath, nausea, vomiting, diarrhea. No recent sick contacts to his knowledge. In the past Augmentin has helped his symptoms. Related Data Home Medications ?Medication ?Instructions ?Recorded ?Confirmed ?Last Taken ?Type hydrocodone 7.5 mg-acetaminophen tablet 12/05/24 Unknown History 325 mg tablet Allergies Allergy/AdvReac Type Severity Reaction Status Date / Time No Known Allergies Allergy Verified 01/21/25 14:52 Review of Systems Review of Systems: CONSTITUTIONAL: Denies fever, chills, or sweats. EYES: Denies visual changes, redness, or discharge. ENT: Reports sinus congestion and thick dark drainage CARDIOVASCULAR: Denies chest pain, palpitations, or edema. RESPIRATORY: Denies cough or dyspnea. GASTROINTESTINAL: Denies abdominal pain, nausea, vomiting, or diarrhea. GENITOURINARY: Denies dysuria or hematuria. SKIN: Denies rash or itching. MUSCULOSKELETAL: Denies back pain, joint pain, or myalgia. NEUROLOGIC: Denies headache, numbness, dizziness, or weakness. PSYCHIATRIC: Denies anxiety or depression. PMFSH Past Medical History Medical History Flexor tendon bowstring Surgical History Surgical History Carpal tunnel syndrome History of appendectomy Family History Family History (Updated 01/21/25 @ 15:49 by MARIA EUGENIA Jean, ) Mother Family history non-contributory Social History Social History Smoking packs per day: 1 Smoking cigarettes per day: 20.0 Smoking status: Current every day smoker Tobacco type: cigarettes Exam Narrative: GENERAL: Well-appearing, well-nourished, and in no acute distress. HEAD: Normocephalic, atraumatic. EYES: PERRLA and EOMI. ENT: Nares clear, no rhinorrhea or epistaxis. Mucous membranes moist. Oropharynx without tonsillar hypertrophy exudate or other lesions. Bilateral TMs pearly donnelly nonbulging NECK: Supple. No adenopathy or masses. No carotid bruits or JVD CHEST: Clear to auscultation. No respiratory distress. No wheezes rales or rhonchi HEART: Regular rate and rhythm. No murmur heard. Normal peripheral pulses. ABDOMEN: Soft, nontender, nondistended, normal active bowel sounds. EXTREMITIES: Normal range of motion. No edema. SKIN: Warm, dry, no rash. NEURO: No focal deficits. Alert and oriented x3. PSYCH: Normal mood and affect. Course Course Emergency Course: This is a 44-year-old male who presented for evaluation of sinus symptoms. He meets criteria for bacterial sinusitis based upon mucopurulent nature of his nasal discharge. Will discharge with Augmentin. Follow-up with primary provider. Go to the ER for worsening symptoms. Patient in agreement with plan of care. Level of Care: Express Care Visit Vital Signs Vital signs: Vital Signs Temperature 36.9 C 01/21/25 14:48 Pulse Rate 01/21/25 14:48 Respiratory Rate 01/21/25 14:48 Blood Pressure 151/83 H 01/21/25 14:48 Pulse Oximetry 98 01/21/25 14:48 Oxygen Delivery Room Air 01/21/25 14:48 Temperature 36.9 C 01/21/25 14:48 Pulse Rate 01/21/25 14:48 Respiratory Rate 01/21/25 14:48 Blood Pressure 151/83 H 01/21/25 14:48 Pulse Oximetry 98 01/21/25 14:48 Oxygen Delivery Room Air 01/21/25 14:48 Medical Decision Making Vital Signs Vital Signs: Vital Signs Temperature 36.9 C 01/21/25 14:48 Pulse Rate 01/21/25 14:48 Respiratory Rate 01/21/25 14:48 Blood Pressure 151/83 H 01/21/25 14:48 Pulse Oximetry 98 01/21/25 14:48 Oxygen Delivery Room Air 01/21/25 14:48 Temperature 36.9 C 01/21/25 14:48 Pulse Rate 74 01/21/25 14:48 Respiratory Rate 20 01/21/25 14:48 Blood Pressure 151/83 H 01/21/25 14:48 Pulse Oximetry 98 01/21/25 14:48 Oxygen Delivery Room Air 01/21/25 14:48 Discharge Plan Discharge Clinical Impression: Acute bacterial sinusitis Patient Disposition: Home Condition: Stable Instructions: Antibiotic Form, Sinusitis (ED) Additional Instructions: SUDAFED AND FLONASE MAY HELP WITH SINUS CONGESTION Patient Language: Romanian Prescriptions: New amoxicillin-pot clavulanate 875-125 mg tablet 1 tablet PO Q12H Qty: 20 0RF No Action hydrocodone-acetaminophen 7.5-325 mg tablet Follow-up/Referrals: Sheeba,Jones Campos MD [Primary Care Provider] - Time of Disposition: 15:14
== END 2025-01-21 15:15 | disposition home or self-care (01) ==
PROVIDERS: Emergency Provider Nurse Practitioner; PCP Internal Medicine
DX: J01.90 Acute sinusitis, unspecified (principal); F17.210 Nicotine dependence, cigarettes, uncomplicated
CPT/HCPCS: 99213; G0463